=== PATIENT | female | born 1940 | race Caucasian/White ===

== ENCOUNTER → 2017-04-09 | Outpatient (CLI) | payer MEDICARE, OTHER ==
[2017-04-09 16:21] LABS: Urine Bilirubin Negative (Negative); Urine Blood Negative /uL (Negative); Urine Color Yellow (Yellow); Urine Glucose Normal (Normal); Urine Ketone Negative (Negative); Urine Nitrite Negative (Negative); Urine Urobilinogen Normal (Negative)
== END | disposition home or self-care (01) ==
LOC: LAB 11:25
PROVIDERS: ATTEND Internal Medicine Cardiovascular Disease
DX: N39.0 Urinary tract infection, site not specified (principal)
CPT/HCPCS: 81003; 87086

== ENCOUNTER → 2017-04-19 | Outpatient (CLI) | payer MEDICARE, OTHER ==
[2017-04-20 12:30] LABS: Urine Bilirubin Negative (Negative); Urine Blood Negative /uL (Negative); Urine Color Yellow (Yellow); Urine Glucose Normal (Normal); Urine Ketone Negative (Negative); Urine Nitrite Negative (Negative); Urine Urobilinogen Normal (Negative)
== END | disposition home or self-care (01) ==
LOC: LAB 11:23
PROVIDERS: ATTEND Internal Medicine Cardiovascular Disease
DX: N39.0 Urinary tract infection, site not specified (principal)
CPT/HCPCS: 81003; 87086

== ENCOUNTER → 2017-09-05 | Outpatient (CLI) | payer MEDICARE, OTHER | END | disposition home or self-care (01) | LOC: Rad HDHVI 08:57 | PROVIDERS: ATTEND Internal Medicine Cardiovascular Disease | DX: I08.0 Rheumatic disorders of both mitral and aortic valves (principal) | CPT/HCPCS: 93306; 93880 ==

== ENCOUNTER → 2017-09-07 | Outpatient (CLI) | payer MEDICARE, OTHER ==
[~2017-09-07] VITALS: Ht 152.4 cm; Wt 41.7 kg
[2017-09-07 12:18] LABS: Urine Blood Negative /uL (Negative); Urine Specific Gravity 1.022 (1.001-1.035)
[2017-09-07 12:23] LABS: Basophils # (auto) 0.1 uL; Eosinophils # (auto) 0.2 uL; Lymphocytes # (auto) 1.1 uL; Mean Corpuscular Hgb Conc. 33.1 g/dL (32.0-36.0); Monocytes # (auto) 0.7 uL; Neutrophils # (auto) 3.7 uL; Red Blood Cells 3.22 10^6/uL (4.0-5.20); Red Cell Distribution Width 13.2 % (11.8-14.3)
[2017-09-07 12:26] LABS: Basophils % (auto) 1.8 % (0.0-2.0); Hematocrit 33.9 % (36.0-46.0); Hemoglobin 11.2 g/dL (12.2-16.2); Lymphocytes % (auto) 18.3 % (10.0-50.0); Mean Corpuscular Hemoglobin 34.9 pg (28.0-32.0); Mean Corpuscular Volume 105.3 fL (80.0-100.0); Monocytes % (auto) 12.9 % (0.0-12.0); Nucleated Red Blood Cells % 0.2 %; Platelet Count (auto) 326 10^3/uL (140-450); White Blood Cell 5.8 10^3/uL (4.4-10.8)
[2017-09-07 12:42] LABS: Free T4 (Free Thyroxine) 0.86 ng/dL (0.89-1.76)
[2017-09-07 12:48] LABS: Albumin 3.4 g/dL (3.4-5.0); BUN/Creatinine Ratio 28.3; Bilirubin, Total 0.4 mg/dL (0.2-1.0); Calcium 8.9 mg/dL (8.5-10.1); Potassium 4.7 mmol/L (3.5-5.1); Total Protein 7.8 g/dL (6.4-8.2)
== END | disposition home or self-care (01) ==
LOC: Rad HDHVI 09:22
PROVIDERS: ATTEND Internal Medicine Cardiovascular Disease
DX: I10 Essential (primary) hypertension (principal); E78.00 Pure hypercholesterolemia, unspecified; D64.9 Anemia, unspecified; E03.9 Hypothyroidism, unspecified; E11.9 Type 2 diabetes mellitus without complications; E55.9 Vitamin D deficiency, unspecified; N39.0 Urinary tract infection, site not specified; D51.9 Vitamin B12 deficiency anemia, unspecified
CPT/HCPCS: 36415; 78452; 80053; 80061; 81003; 82306; 82607; 83036; 84439; 84443; 85025; 93017; 96374; A9500

== ENCOUNTER → 2017-09-12 | Outpatient (CLI) | payer MEDICARE, OTHER ==
[2017-09-12 16:06] LABS: Urine Blood Negative /uL (Negative); Urine Specific Gravity 1.021 (1.001-1.035)
== END | disposition home or self-care (01) ==
LOC: LAB 12:29
PROVIDERS: ATTEND Internal Medicine Cardiovascular Disease
DX: N39.0 Urinary tract infection, site not specified (principal)
CPT/HCPCS: 81003; 87086

== ENCOUNTER → 2017-10-01 | Outpatient (CLI) | payer MEDICARE, OTHER ==
[2017-10-01 17:06] LABS: Urine Blood Negative /uL (Negative); Urine Specific Gravity 1.018 (1.001-1.035)
== END | disposition home or self-care (01) ==
LOC: LAB 14:39
PROVIDERS: ATTEND Internal Medicine Cardiovascular Disease
DX: N39.0 Urinary tract infection, site not specified (principal)
CPT/HCPCS: 81003; 87086

== ENCOUNTER → 2018-08-28 | Outpatient (CLI) | payer MEDICARE, OTHER ==
[2018-08-28 16:16] LABS: Urine Blood Negative /uL (Negative); Urine Specific Gravity 1.016 (1.001-1.035)
[2018-08-28 16:25] LABS: Albumin 3.6 g/dL (3.4-5.0); Calcium 9.1 mg/dL (8.5-10.1); Potassium 4.7 mmol/L (3.5-5.1)
[2018-08-28 16:33] LABS: Bilirubin, Direct 0.1 mg/dL (0-0.2); Bilirubin, Total 0.4 mg/dL (0.2-1.0); Total Protein 8.5 g/dL (6.4-8.2)
[2018-08-28 16:35] LABS: Basophils # (auto) 0.1 uL; Eosinophils # (auto) 0.1 uL; Monocytes # (auto) 0.7 uL; Neutrophils # (auto) 3.6 uL
[2018-08-28 16:37] LABS: Basophils % (auto) 1.9 % (0.0-2.0); Eosinophils % (auto) 1.8 % (0.0-7.0); Hematocrit 38.9 % (36.0-46.0); Hemoglobin 12.9 g/dL (12.2-16.2); Lymphocytes # (auto) 1.2 uL; Lymphocytes % (auto) 20.8 % (10.0-50.0); Mean Corpuscular Hemoglobin 34.8 pg (28.0-32.0); Mean Corpuscular Hgb Conc. 33.1 g/dL (32.0-36.0); Mean Corpuscular Volume 105.2 fL (80.0-100.0); Monocytes % (auto) 11.7 % (0.0-12.0); Neutrophils % (auto) 63.8 % (37.0-80.0); Nucleated Red Blood Cells % 0.1 %; Platelet Count (auto) 365 10^3/uL (140-450); Red Cell Distribution Width 13.2 % (11.8-14.3); White Blood Cell 5.7 10^3/uL (4.4-10.8)
== END | disposition home or self-care (01) ==
LOC: LAB 11:39
PROVIDERS: ATTEND Internal Medicine Cardiovascular Disease
DX: N39.0 Urinary tract infection, site not specified (principal); K74.1 Hepatic sclerosis; E03.9 Hypothyroidism, unspecified; E55.9 Vitamin D deficiency, unspecified; E11.9 Type 2 diabetes mellitus without complications
CPT/HCPCS: 36415; 80048; 80061; 80076; 81003; 82306; 83036; 84443; 85025; 87086

== ENCOUNTER → 2018-11-06 | Outpatient (CLI) | payer MEDICARE, OTHER | END | disposition home or self-care (01) | LOC: Rad HDHVI 12:12 | PROVIDERS: ATTEND Internal Medicine Cardiovascular Disease | DX: M47.816 Spondylosis without myelopathy or radiculopathy, lumbar region (principal); M48.061 Spinal stenosis, lumbar region without neurogenic claudication | CPT/HCPCS: 72131 ==

== ENCOUNTER → 2018-12-02 | Outpatient (CLI) | payer MEDICARE, BC ==
[~2018-12-02] MED LIST: ALPR0.25 PO; AZIL40TA2 PO; EST0625T PO; GABA300C10 PO; HYDR-531 PO; TRAM50TA2 PO; [UNRECOGNIZED DRUG - CODE] TOP
[2018-12-02 08:15] VITALS: BP 131/60
[2018-12-02 08:40] VITALS: BP 142/73
--- NOTE | 2018-12-02 08:40 | NUR ---
PRE-OP FOR RIGHT LEG DIRECTOR OF INFORMATICS FOR 12/05/18 FOR PAD. Pre-Op Discharge Summary: See e-MAR for any medications given for this visit. Pre-op orders received and carried out per MD of EKG, LABS and chest xrays. Patient given a copy of EKG with instructions to go to [facility] out patient for further follow up care.
[2018-12-02 12:32] LABS: Potassium 4.8 mmol/L (3.5-5.1)
[2018-12-02 12:33] LABS: INR 0.9 (0.9-1.15); Partial Thromboplastin Time 26.8 sec (23.78-33.04); Prothrombin Time 9.7 sec (9.27-12.13)
[2018-12-02 12:38] LABS: Basophils # (auto) 0.1 uL; Eosinophils # (auto) 0.1 uL; Hematocrit 39.3 % (36.0-46.0); Lymphocytes # (auto) 1.3 uL; Neutrophils # (auto) 3.6 uL; Neutrophils % (auto) 61.5 % (37.0-80.0); Nucleated Red Blood Cells % 0.3 %; Red Blood Cells 3.78 10^6/uL (4.0-5.20)
[2018-12-02 12:39] LABS: Basophils % (auto) 1.4 % (0.0-2.0); Hemoglobin 13.2 g/dL (12.2-16.2); Mean Corpuscular Hemoglobin 34.8 pg (28.0-32.0); Mean Corpuscular Hgb Conc. 33.5 g/dL (32.0-36.0); Mean Corpuscular Volume 103.9 fL (80.0-100.0); Monocytes # (auto) 0.7 uL; Monocytes % (auto) 12.1 % (0.0-12.0); Platelet Count (auto) 377 10^3/uL (140-450); Red Cell Distribution Width 13.4 % (11.8-14.3); White Blood Cell 5.9 10^3/uL (4.4-10.8)
[2018-12-02 13:11] LABS: BUN/Creatinine Ratio 34.2; Calcium 9.3 mg/dL (8.5-10.1)
== END | disposition home or self-care (01) ==
LOC: Rad HDHVI 08:01
PROVIDERS: ATTEND Internal Medicine Cardiovascular Disease
DX: Z01.812 Encounter for preprocedural laboratory examination (principal); D64.9 Anemia, unspecified; R79.1 Abnormal coagulation profile; I10 Essential (primary) hypertension; M85.88 Other specified disorders of bone density and structure, other site; I70.0 Atherosclerosis of aorta
CPT/HCPCS: 36415; 71046; 80048; 85025; 85610; 85730; 93005; G0463

== ENCOUNTER 2018-12-05 08:58 | Inpatient (IN) | payer BC, MEDICARE ==
[~2018-12-05] VITALS: Ht 152.4 cm; Wt 45.0 kg
[2018-12-05] VITALS (26 sets, daily range): BP systolic 81–115; BP diastolic 35–70
[2018-12-05] MEDS ORDERED: ANGIOMAX 250 MG VIAL IV ONE (12:05)
[2018-12-05] MEDS ORDERED: fentaNYL CITRATE 100 MCG/2 ML VL ONE (12:05)
[2018-12-05] MEDS ORDERED: MIDAZOLAM HCL 1MG/1ML-2 ML VIAL ONE (12:06)
[2018-12-05] MEDS ORDERED: SODIUM CHL 0.9% 50 ML ONE (12:06)
[2018-12-05] MEDS ORDERED: IODIXANOL 320MG/ML 100ML BTL IV ONE (12:08)
[2018-12-05] MEDS ORDERED: LIDOCAINE 2%HCL (LOCAL ANESTH.) INJ 20ML MDV ONE (12:08)
[2018-12-05] MEDS ORDERED: VERAPAMIL 2.5MG/ML INJ 2ML VIAL IV ONE (12:35)
[2018-12-05] MEDS ORDERED: NITROGLYCERIN 5MG/ML 10ML VIAL IV ONE (12:42)
[2018-12-05] MEDS ORDERED: HYDROmorphone HCL 2 MG/ML VL ONE (12:56)
[2018-12-05] MEDS ORDERED: diphenhdrAMINE HCL 50 MG/1 ML VL ONE (13:01)
[2018-12-05] MEDS ORDERED: CLOPIDOGREL 300 MG TAB ONE (13:09)
[2018-12-05] MEDS ORDERED: ASPirin 325 MG TAB ONE (13:09)
[2018-12-05] MEDS ORDERED: MORPHINE SULF INJ 2 MG/ML SYRINGE 1ML IV PRN (13:15)
[2018-12-05] MEDS ORDERED: ACETAMINOPHEN 500 MG TAB PO PRN (13:15)
[2018-12-05] MEDS ORDERED: NITROGLYCERIN 0.4 MG SL TAB SL PRN (13:15)
[2018-12-05] MEDS ORDERED: ALPRAZolam 0.25 MG TAB PO PRN (13:30)
[2018-12-05] MEDS: HYDROcodone-ACET 10/325MG TAB PO PRN ×3 (15:06→22:13)
[2018-12-05] MEDS ORDERED: DOPamine 1600MCG/ML D5W 250 ML IV ONE (15:53)
[2018-12-05] MEDS: DOPamine 1600MCG/ML D5W 250 ML IV SCH (16:01)
[2018-12-05 17:24] LABS: Basophils # (auto) 0.1 uL; Hemoglobin 8.7 g/dL (12.2-16.2); Mean Corpuscular Hemoglobin 34.6 pg (28.0-32.0); Monocytes # (auto) 0.8 uL; Platelet Count (auto) 268 10^3/uL (140-450)
[2018-12-05 17:25] LABS: Basophils % (auto) 1.1 % (0.0-2.0); Eosinophils # (auto) 0.1 uL; Eosinophils % (auto) 1.9 % (0.0-7.0); Hematocrit 26.6 % (36.0-46.0); Lymphocytes # (auto) 0.7 uL; Lymphocytes % (auto) 9.2 % (10.0-50.0); Mean Corpuscular Hgb Conc. 32.8 g/dL (32.0-36.0); Mean Corpuscular Volume 105.3 fL (80.0-100.0); Monocytes % (auto) 9.7 % (0.0-12.0); Neutrophils # (auto) 6.2 uL; Neutrophils % (auto) 78.1 % (37.0-80.0); Red Blood Cells 2.53 10^6/uL (4.0-5.20); Red Cell Distribution Width 13.8 % (11.8-14.3); White Blood Cell 7.9 10^3/uL (4.4-10.8)
[2018-12-05] MEDS: ONDANSETRON HCL 4 MG/2 ML VIAL IV PRN ×2 (17:31→22:12)
--- NOTE | 2018-12-05 18:50 | NUR ---
REPORT Received report from Lashawn MORSE, awaiting for patient to arrive to room 103.
--- NOTE | 2018-12-05 19:00 | NUR ---
admit to ICU pt S/P laborer [employer] Report received from dee carrillo. ZENY HURST brought to bed 103 following bilateral lower extremity angiography, on liquor commissioner and portable oxygen. Patient transfered to ICU bed, connected to ICU monitoring and oxygen.left angio Site assessed for any bleeding, redness or swelling. positive Pedal pulses via doppler on affected leg assessed for positive tissue perfusion. Patient instructed on need to notify staff immediately if any pain, burning or wetness to site, and any lower back pain. All questions and concerns addressed, patient verbalized understanding of all education and instruction. See notes for any further. pt on dopamine drip
--- NOTE | 2018-12-05 19:00 | NUR ---
RECEIVED PATIENT Received patient into room 103, connected patient to bedside monitor, difficulty getting EKG leads to read, O2 sats not reading patient stating " she is cold" and last temperature taking by computer lab assistant nurses was 96.5. MRSA swab sent to laboratory.
--- NOTE | 2018-12-05 19:15 | NUR ---
REPORT Report given to oncoming MINI Santos.
--- NOTE | 2018-12-05 19:30 | NUR ---
UNABLE TO GET PULSE -OX TO READ DESPITE MULTIPLE LOCATIONS AND CHANGING CABLE
--- NOTE | 2018-12-05 21:10 | NUR ---
prbc hung educated on s/s of transfusion reaction. pt lethargic at this time unable to verbalize understanding. will stay at bedside for first 15minutes to monitor for s/s of transfusion reaction.
--- NOTE | 2018-12-05 21:27 | NUR ---
transfusion no s/s of transfusion reaction within the first 15minutes. will continue to monitor.
--- NOTE | 2018-12-05 21:45 | NUR ---
VOID X1 VIA BEDPAN - SARAH URINE
[2018-12-05] MEDS ORDERED: GABAPENTIN 300 MG CAP PO SCH (22:00)
[2018-12-05] MEDS: traMADol HCL 50 MG TAB PO SCH (22:00)
--- NOTE | 2018-12-05 22:14 | NUR ---
ultram held pt requested norco for pain instead of ultram.
--- NOTE | 2018-12-05 23:38 | NUR ---
PAGED DR. MENDOZA - PATIENT STATES SHE TAKES 600 MG OF GABAPENTIN AT NIGHT, BUT ONLY 300 MG WAS ORDERED. PATIENT RELAYS THAT PAIN IS TOLERABLE AT THIS TIME, BUT IF IT WORSENS, SHE STATES THE ONLY THING THAT MAKES IT FEEL BETTER IS STANDING UP
[2018-12-06] VITALS (76 sets, daily range): BP systolic 81–136; BP diastolic 32–113
--- NOTE | 2018-12-06 | NUR ---
STILL UNABLE TO GET PULSE OX TO READ
--- NOTE | 2018-12-06 00:15 | NUR ---
transfusion complete pt tolerated well. no s/s of transfusion reaction.
[2018-12-06] MEDS: traMADol HCL 50 MG TAB PO SCH ×2 (00:42→21:02)
--- NOTE | 2018-12-06 00:44 | NUR ---
REPORTED THAT SHE FELT LIKE SOMEONE WAS GRABBING HER INSIDES, JET SKI MECHANIC UNABLE TO DETECT ANY CHANGES IN ABDOMEN. REMAINS ON DOPAMINE GTT. Addendum: 12/06/18 at 0045 by Danielle Caro RN RN TRAMADOL GIVEN
--- NOTE | 2018-12-06 01:31 | NUR ---
DR. MENDOZA AWARE OF PATIENT'S REQUEST FOR 600 MG NEURONTIN IN THE EVENING, BUT ORDER FOR [address] MENDOZA, OK TO CHANGE ORDERS. ORDERS READBACK AND VERIFIED
--- NOTE | 2018-12-06 03:12 | NUR ---
VOID X1 VIA BED VILLA
--- NOTE | 2018-12-06 03:18 | NUR ---
LEFT GROIN ANGIO SITE CHECK: DRESSING CDI. NO HEMATOMA, ECCHYMOSIS, OR ACTIVE BLEEDING. PATIENT RATES ABDOMINAL PAIN "TOLERABLE." PATIENT ASKING ABOUT WHAT TIME DR. MENDOZA WILL ROUND
[2018-12-06] MEDS ORDERED: ASPI-231 PO (03:25)
--- NOTE | 2018-12-06 05:00 | NUR ---
VOID VIA BED VILLA X1
[2018-12-06] MEDS: HYDROcodone-ACET 10/325MG TAB PO PRN ×4 (05:24→19:28)
--- NOTE | 2018-12-06 06:06 | NUR ---
FAMILY UPDATED: AFTER PASSWORD VERIFIED, UPDATED ON PATIENT'S STATUS
--- NOTE | 2018-12-06 06:46 | NUR ---
FAMILY AT BEDSIDE
--- NOTE | 2018-12-06 06:46 | NUR ---
INQUIRED WITH LAB ABOUT LAB AM LAB DRAW: PER LAB, WILL SEND SENIOR ACCOUNT CLERK
--- NOTE | 2018-12-06 07:11 | NUR ---
CLOSING NOTE GAVE REPORT TO DEA MORSE
--- NOTE | 2018-12-06 07:12 | NUR ---
SHIFT OPENING NOTE PATIENT AOX4, MOVING ALL EXTREMITIES, LEFT GROIN SITE NO HEMATOMA OR BLEEDING NOTED, PEDAL PULSES WITH DOPPLER BILATERALLY, 2LNC LUNGS CLEAR THROUGHOUT, ABDOMEN SOFT AND NONTENDER, PER PATIENT SHE IS PASSING GAS AT THIS TIME. ALL QUESTIONS AND CONCERNS ADDRESSED AT THIS TIME WITH PLAN OF CARE DISCUSSED IN DETAIL
[2018-12-06 07:29] LABS: Basophils # (auto) 0 uL; Eosinophils # (auto) 0 uL; Eosinophils % (auto) 0.2 % (0.0-7.0); Lymphocytes # (auto) 0.8 uL
[2018-12-06 07:30] LABS: Basophils % (auto) 0.5 % (0.0-2.0); Hematocrit 24.8 % (36.0-46.0); Hemoglobin 8.5 g/dL (12.2-16.2); Lymphocytes % (auto) 8.8 % (10.0-50.0); Mean Corpuscular Hemoglobin 33.1 pg (28.0-32.0); Mean Corpuscular Hgb Conc. 34.2 g/dL (32.0-36.0); Mean Corpuscular Volume 96.6 fL (80.0-100.0); Monocytes % (auto) 10.9 % (0.0-12.0); Neutrophils # (auto) 7.1 uL; Neutrophils % (auto) 79.6 % (37.0-80.0); Platelet Count (auto) 221 10^3/uL (140-450); Red Blood Cells 2.57 10^6/uL (4.0-5.20); Red Cell Distribution Width 18.7 % (11.8-14.3); White Blood Cell 8.9 10^3/uL (4.4-10.8)
[2018-12-06 07:38] LABS: Calcium 7.1 mg/dL (8.5-10.1); Potassium 4.3 mmol/L (3.5-5.1)
[2018-12-06 07:41] LABS: BUN/Creatinine Ratio 34.1
[2018-12-06] MEDS: ASPirin 81 mg TAB PO SCH (09:54)
[2018-12-06] MEDS: GABAPENTIN 300 MG CAP PO SCH (09:56)
[2018-12-06] MEDS: CLOPIDOGREL BISULFATE 75 MG TAB PO SCH (09:57)
--- NOTE | 2018-12-06 09:59 | NUR ---
FAMILY DAUGHTER AT BEDSIDE. UPDATED ON PATIENT STATUS. ALL QUESTIONS AND CONCERNS ADDRESSED AT THIS TIME
[2018-12-06] MEDS ORDERED: GABAPENTIN 300 MG CAP PO SCH ×2 (10:00→22:00)
--- NOTE | 2018-12-06 10:04 | NUR ---
DR. MENDOZA AT BESIDE
--- NOTE | 2018-12-06 11:15 | NUR ---
1 unit prbc started
--- NOTE | 2018-12-06 13:45 | NUR ---
BLOOD TRANFUSION COMPLETE NO REACTION NOTED
--- NOTE | 2018-12-06 14:11 | NUR ---
PATIENT OUT OF BED TO CHAIR WITH MINIMAL ASSIST
--- NOTE | 2018-12-06 14:21 | NUR ---
COMPLETE LINEN CHANGE PERFORMED AT THIS TIME
[2018-12-06] MEDS: DOPamine 1600MCG/ML D5W 250 ML IV SCH (16:00)
--- NOTE | 2018-12-06 16:10 | NUR ---
PATIENT BACK TO BED FALL PRECAUTIONS IN PLACE, STANDBY ASSIST
--- NOTE | 2018-12-06 19:10 | NUR ---
REPORT GIVEN TO JUSTIN MORSE TO ASSUME CARE
--- NOTE | 2018-12-06 19:14 | NUR ---
REPORT RECEIVED FROM MINI MALIN
--- NOTE | 2018-12-06 19:25 | NUR ---
OPENING NOTE: A&OX4. PLEASANT AND COOPERATIVE. NSR, HR 70s. SBP 100s. LS CTA, EVEN AND UNLABORED BREATHING. SpO2 >95% ON RA. ABD TENDER. UNABLE TO PALPATE HEMATOMA IN LEFT INGUINAL REGION. REPORTS POOR APPETITE, DENIES NAUSEA. REPORT LACK OF OUTPUT FROM COLOSTOMY. COLOSTOMY STOMA PINK, AND APPLIANCE INTACT. SMALL AMOUNT OF BROWN PASTY STOOL NOTED. VOIDING VIA BEDSIDE COMMODE, URINE YELLOW AND CLEAR WITH MILD ODOR. LEFT GROIN ANGIO SITE WITH ORIGINAL DRESSING INTACT, NO ECCHYMOSIS, HEMATOMA, OR ACTIVE BLEEDING NOTED. + PEDAL PULSE VIA DOPPLER, +CMS. NOTED WITH VARICOSE VEINS TO POSTERIOR RIGHT THIGH. SCATTERED BRUISING TO BUE. SKIN OTHERWISE INTACT. RIGHT AC 20 G PIV, PATENT WITH BLOOD RETURN, CDI. 22 G TO LEFT FOREARM, PATENT WITH BLOOD RETURN AND CDI. REPORTS 8/10 ACHING LOWER LEFT ABDOMINAL PAIN. DENIES CHEST PAIN, SOB, HEADACHE, DIZZINESS, N/V, AND NUMBNESS AND TINGLING. REINFORCED POC. MAINTAINED PATIENT SAFETY: BED LOCKED AND IN THE LOWEST POSITION, BED ALARM ON. FREQUENT VISUAL CHECKS. ENCOURAGED PATIENT TO VERBALIZE NEEDS. PATIENT VERBALIZED UNDERSTANDING. WILL CONT CARE
--- NOTE | 2018-12-06 19:44 | NUR ---
SCHEDULED MEDS GIVEN EARLY PER PATIENT REQUEST, THIS IS THE SCHEDULE OF HOW SHE TAKES THEM AT HOME
--- NOTE | 2018-12-06 20:00 | NUR ---
PATIENT INDEPENDENTLY REPOSITIONS: EDUCATED ON IMPORTANCE OF REPOSITIONING AND SHIFTING WEIGHT IN BED TO PREVENT SKIN BREAKDOWN. PATIENT VERBALIZED UNDERSTANDING. WILL CONT CARE.
--- NOTE | 2018-12-06 20:45 | NUR ---
AMBULATED FOUR LAPS AROUND THE UNIT WITH ASSISTANCE OF FWW WITH NO COMPLICATIONS
--- NOTE | 2018-12-06 20:45 | NUR ---
COLOSTOMY APPLIANCE CHANGED: SMALL AMOUNT OF PASTY STOOL. PATIENT REPORTS TENDERNESS TO STOMA. STOMA PER PATIENT IS "POOFY AND ANGRY" BUT PINK. CLEANSED AREA WITH SOAP AND WATER. APPLIED NEW APPLIANCE.
--- NOTE | 2018-12-06 21:04 | NUR ---
SCHEDULED MEDS GIVEN EARLY PER PATIENT'S REQUEST
[2018-12-06] MEDS ORDERED: POLYETHYLENE GLYCOL 17 GM PWDR PO SCH (22:00)
--- NOTE | 2018-12-06 22:07 | NUR ---
ROUNDED: SLEEPING. EVEN AND UNLABORED BREATHING. NO PAIN BEHAVIORS IDENTIFIED. WILL CONT CARE
[2018-12-06] MEDS ORDERED: POLY33504 PO (22:17)
--- NOTE | 2018-12-06 23:00 | NUR ---
ROUNDED: SLEEPING. EVEN AND UNLABORED BREATHING. NO PAIN BEHAVIORS IDENTIFIED. WILL CONT CARE
[2018-12-07] VITALS (14 sets, daily range): BP systolic 93–116; BP diastolic 38–62
--- NOTE | 2018-12-07 | NUR ---
PATIENT INDEPENDENTLY REPOSITIONING: SHIFTS HER WEIGHT WHILE SLEEPING. WILL CONTINUE EDUCATION AND CARE.
--- NOTE | 2018-12-07 00:19 | NUR ---
DEFERRED TEMPERATURE ASSESSMENT AT THIS TIME - PATIENT ASLEEP
--- NOTE | 2018-12-07 00:20 | NUR ---
ROUNDED: ASLEEP, EVEN AND UNLABORED BREATHING. NO PAIN BEHAVIORS. VSS. WILL CONT CARE
--- NOTE | 2018-12-07 00:57 | NUR ---
ROUNDED: SLEEPING, EVEN AND UNLABORED BREATHING. VSS. WILL CONT CARE
--- NOTE | 2018-12-07 02:15 | NUR ---
UP TO BEDSIDE COMMODE WITH STAND BY ASSIST
--- NOTE | 2018-12-07 03:23 | NUR ---
ROUNDED: SLEEPING. EVEN AND UNLABORED BREATHING. NO PAIN BEHAVIORS IDENTIFIED. WILL CONT CARE
[2018-12-07] MEDS: HYDROcodone-ACET 10/325MG TAB PO PRN ×2 (04:11→09:48)
--- NOTE | 2018-12-07 04:12 | NUR ---
FAMILY UPDATED: AFTER PASSWORD VERIFIED. UPDATED ON PATIENT'S STATUS. ANSWERED ALL QUESTIONS ABLE.
[2018-12-07 04:19] LABS: Basophils # (auto) 0.1 uL; Eosinophils # (auto) 0.2 uL; Eosinophils % (auto) 2.5 % (0.0-7.0); Hematocrit 27.4 % (36.0-46.0); Hemoglobin 9.5 g/dL (12.2-16.2); Lymphocytes % (auto) 15.5 % (10.0-50.0); Mean Corpuscular Hemoglobin 32.5 pg (28.0-32.0); Mean Corpuscular Hgb Conc. 34.8 g/dL (32.0-36.0); Mean Corpuscular Volume 93.5 fL (80.0-100.0); Monocytes # (auto) 0.8 uL; Monocytes % (auto) 12.4 % (0.0-12.0); Neutrophils # (auto) 4.4 uL; Neutrophils % (auto) 68.6 % (37.0-80.0); Platelet Count (auto) 187 10^3/uL (140-450); Red Blood Cells 2.94 10^6/uL (4.0-5.20); Red Cell Distribution Width 19.5 % (11.8-14.3); White Blood Cell 6.4 10^3/uL (4.4-10.8)
[2018-12-07 04:27] LABS: BUN/Creatinine Ratio 27.9; Calcium 7.4 mg/dL (8.5-10.1); Potassium 3.9 mmol/L (3.5-5.1)
--- NOTE | 2018-12-07 05:13 | NUR ---
ROUNDED: AWAKE AND WATCHING TV. NO NEEDS AT THIS TIME. VSS. WILL CONT CARE
--- NOTE | 2018-12-07 06:35 | NUR ---
PIV TO LEFT FOREARM ACCIDENTLY DISLODGED BY PATIENT WHEN TRANSFERRING FROM BED TO BEDSIDE COMMODE- REMOVED PIV, PRESSURE HELD UNTIL BLEEDING STOPPED. APPLIED GAUZE, SECURED BY TEGADERM
--- NOTE | 2018-12-07 07:00 | NUR ---
REPORT AND CARE ENDORSED TO MINI MALIN
--- NOTE | 2018-12-07 07:11 | NUR ---
SHIFT OPENING NOTE PATIENT AOX4, MOVING ALL EXTREMITIES, REPORTS NO PAIN OR DISCOMFORT AT THIS TIME. LUNGS CLEAR THROUGHOUT ON ROOM AIR, O2 SATURATION 98%, ABDOMEN SOFT AND NONTENDER, LEFT GROIN SITE BENIGN. PALPABLE PULSES TO LOWER EXTREMITIES. PLAN OF CARE DISCUSSED WITH PATIENT IN DETAIL.
--- NOTE | 2018-12-07 09:22 | NUR ---
FAMILY DAUGHTERS AT BEDSIDE. UPDATED ON PATIENT STATUS. QUESTIONS ADDRESSED AT THIS TIME
[2018-12-07] MEDS: GABAPENTIN 300 MG CAP PO SCH (09:44)
[2018-12-07] MEDS: ASPirin 81 mg TAB PO SCH (09:45)
[2018-12-07] MEDS: CLOPIDOGREL BISULFATE 75 MG TAB PO SCH (09:45)
--- NOTE | 2018-12-07 09:58 | NUR ---
AMBULATION PATIENT AMBULATED SIX TIMES AROUND NURSING STATION WITH STEADY GAIT
[2018-12-07] MEDS: traMADol HCL 50 MG TAB PO SCH (10:00)
--- NOTE | 2018-12-07 10:07 | NUR ---
PLAVIX PRESCRIPTION CALLED INTO [facility] [id number] [address], [place] [address]
--- NOTE | 2018-12-07 10:23 | NUR ---
[facility]SA SCREEN SENT VIA [employer]
[2018-12-07] MEDS ORDERED: MAGNESIUM CITRATE SOLUTION 300 ML BTL PO ONE (10:45)
--- NOTE | 2018-12-07 13:05 | NUR ---
BM PATIENT HAD LARGE LIQUID BM. PATIENT REPORTS RELIEF FROM DISCOMFORT. COLOSTOMY BAG CHANGED AT THIS TIME
--- NOTE | 2018-12-07 13:56 | NUR ---
DISCHARGE PATIENT DISCHARGED AFTER LENGTHY DISCHARGE INFORMATION FROM RN. ALL QUESTIONS AND CONCERNS ADDRESSED AT THIS TIME. PATIENT REPORTS HER PRIMARY CARE PROVIDER IS DR. MENDOZA AND THAT SHE WILL MAKE A FOLLOW UP APPOINTMENT ON SUNDAY FOR A FOLLOW UP. PATIENT DISCHARGED WITH ALL PATIENT BELONGINGS AND NO MEDICATIONS NOTED IN PHARMACY.
--- NOTE | 2018-12-07 13:56 | NUR ---
IV removal IV DC'd with clean sterile technique, catheter fully intact. Pressure dressing applied to site. Patient tolerated well.
[2018-12-08] MEDS ORDERED: ALBUMIN 25% 50 ML IV ONE (00:01)
== END 2018-12-07 13:58 | disposition home or self-care (01) | DRG 271 ==
LOC: CATH 08:58 → ICU WEST 19:05
PROVIDERS: ADMIT Internal Medicine Cardiovascular Disease; ATTEND Internal Medicine Cardiovascular Disease
PROC: 047M3Z1 Dilation of Right Popliteal Artery using Drug-Coated Balloon, Percutaneous Approach (ICD-10-PCS; principal; 2018-12-05)
PROC: 04CM3ZZ Extirpation of Matter from Right Popliteal Artery, Percutaneous Approach (ICD-10-PCS; 2018-12-05)
PROC: 047R3Z1 Dilation of Right Posterior Tibial Artery using Drug-Coated Balloon, Percutaneous Approach (ICD-10-PCS; 2018-12-05)
PROC: 04CR3ZZ Extirpation of Matter from Right Posterior Tibial Artery, Percutaneous Approach (ICD-10-PCS; 2018-12-05)
PROC: 30233N1 Transfusion of Nonautologous Red Blood Cells into Peripheral Vein, Percutaneous Approach (ICD-10-PCS; 2018-12-05)
PROC: B41G1ZZ Fluoroscopy of Left Lower Extremity Arteries using Low Osmolar Contrast (ICD-10-PCS; 2018-12-05)
PROC: B41F1ZZ Fluoroscopy of Right Lower Extremity Arteries using Low Osmolar Contrast (ICD-10-PCS; 2018-12-05)
DX: I73.9 Peripheral vascular disease, unspecified (principal); E46 Unspecified protein-calorie malnutrition; Z68.1 Body mass index [BMI] 19.9 or less, adult; I70.92 Chronic total occlusion of artery of the extremities; D64.9 Anemia, unspecified; G62.9 Polyneuropathy, unspecified; I25.10 Atherosclerotic heart disease of native coronary artery without angina pectoris; J44.9 Chronic obstructive pulmonary disease, unspecified; L98.9 Disorder of the skin and subcutaneous tissue, unspecified; I77.1 Stricture of artery; M19.90 Unspecified osteoarthritis, unspecified site; X58.XXXA Exposure to other specified factors, initial encounter; I95.9 Hypotension, unspecified; S30.1XXA Contusion of abdominal wall, initial encounter; Z85.038 Personal history of other malignant neoplasm of large intestine; Z93.3 Colostomy status; Y92.89 Other specified places as the place of occurrence of the external cause; Y93.89 Activity, other specified; Y99.8 Other external cause status; Z82.49 Family history of ischemic heart disease and other diseases of the circulatory system
CPT/HCPCS: 36415; 37225; 37229; 75716; 80048; 85025; 86850; 86900; 86901; 86920; 87081; 93926; A6257; G0378; J2250; J2405; J3490; Q9967

== ENCOUNTER → 2018-12-30 | Outpatient (CLI) | payer MEDICARE ==
[~2018-12-30] MED LIST changes: +ASPI-231 PO; +CLOP75TA28 PO; +POLY33504 PO
[2018-12-30 12:52] LABS: Basophils # (auto) 0.1 uL; Neutrophils # (auto) 4.1 uL; White Blood Cell 5.9 10^3/uL (4.4-10.8)
[2018-12-30 12:59] LABS: Basophils % (auto) 1.5 % (0.0-2.0); Eosinophils # (auto) 0.1 uL; Eosinophils % (auto) 2.6 % (0.0-7.0); Hematocrit 36.6 % (36.0-46.0); Hemoglobin 12.2 g/dL (12.2-16.2); Lymphocytes # (auto) 0.8 uL; Lymphocytes % (auto) 14.3 % (10.0-50.0); Mean Corpuscular Hemoglobin 33.4 pg (28.0-32.0); Mean Corpuscular Hgb Conc. 33.3 g/dL (32.0-36.0); Mean Corpuscular Volume 100.3 fL (80.0-100.0); Monocytes # (auto) 0.7 uL; Monocytes % (auto) 12.5 % (0.0-12.0); Neutrophils % (auto) 69.1 % (37.0-80.0); Platelet Count (auto) 468 10^3/uL (140-450); Red Blood Cells 3.65 10^6/uL (4.0-5.20); Red Cell Distribution Width 16.5 % (11.8-14.3)
[2018-12-30 13:00] LABS: INR 0.9 (0.9-1.15); Partial Thromboplastin Time 31.7 sec (23.78-33.04); Potassium 4.4 mmol/L (3.5-5.1); Prothrombin Time 9.7 sec (9.27-12.13)
[2018-12-30 13:06] LABS: BUN/Creatinine Ratio 26.3; Calcium 9.2 mg/dL (8.5-10.1)
== END | disposition home or self-care (01) ==
LOC: Rad HDHVI 09:49
PROVIDERS: ATTEND Internal Medicine Cardiovascular Disease
DX: Z01.812 Encounter for preprocedural laboratory examination (principal); J44.9 Chronic obstructive pulmonary disease, unspecified; I70.0 Atherosclerosis of aorta; D64.9 Anemia, unspecified; R79.1 Abnormal coagulation profile; I10 Essential (primary) hypertension
CPT/HCPCS: 36415; 71046; 80048; 85025; 85610; 85730

== ENCOUNTER 2019-01-02 06:53 | Inpatient (IN) | payer MEDICARE | END 2019-01-03 12:25 | disposition home or self-care (01) | LOC: CATH 06:53 → TELE-WESTW 11:26 | PROC: 04CN3ZZ Extirpation of Matter from Left Popliteal Artery, Percutaneous Approach (ICD-10-PCS; principal; ~2019-01-02) | PROC: 04CL3ZZ Extirpation of Matter from Left Femoral Artery, Percutaneous Approach (ICD-10-PCS; ~2019-01-02) | PROC: 047L3ZZ Dilation of Left Femoral Artery, Percutaneous Approach (ICD-10-PCS; ~2019-01-02) | PROC: 047N3ZZ Dilation of Left Popliteal Artery, Percutaneous Approach (ICD-10-PCS; ~2019-01-02) | PROC: B41G1ZZ Fluoroscopy of Left Lower Extremity Arteries using Low Osmolar Contrast (ICD-10-PCS; ~2019-01-02) | PROC: B41F1ZZ Fluoroscopy of Right Lower Extremity Arteries using Low Osmolar Contrast (ICD-10-PCS; ~2019-01-02) | DX: I73.9 Peripheral vascular disease, unspecified (principal); Z93.3 Colostomy status; Z85.038 Personal history of other malignant neoplasm of large intestine; M79.7 Fibromyalgia; J44.9 Chronic obstructive pulmonary disease, unspecified; I10 Essential (primary) hypertension; M19.90 Unspecified osteoarthritis, unspecified site ==

== ENCOUNTER → 2019-08-06 | Outpatient (CLI) | payer MEDICARE ==
[~2019-08-06] MED LIST changes: +ACLI1AER2 IN
== END | disposition home or self-care (01) ==
LOC: Rad HDHVI 08:59
PROVIDERS: ATTEND Internal Medicine Cardiovascular Disease
DX: I70.201 Unspecified atherosclerosis of native arteries of extremities, right leg (principal); I70.202 Unspecified atherosclerosis of native arteries of extremities, left leg
CPT/HCPCS: 93925

== ENCOUNTER → 2019-08-12 | Outpatient (CLI) | payer MEDICARE ==
[2019-08-12 09:39] VITALS: BP 167/78
--- NOTE | 2019-08-12 09:39 | NUR ---
Pre-Op Discharge Summary: See e-MAR for any medications given for this visit. Pre-op orders received and carried out per MD of EKG, LABS and chest xrays. Patient given a copy of EKG with instructions to go to [facility] out patient for further follow up care.
[2019-08-12 10:00] VITALS: BP 141/48
[2019-08-12 11:45] LABS: Basophils # (auto) 0.1 uL; Eosinophils # (auto) 0.1 uL; Lymphocytes # (auto) 0.7 uL; Monocytes # (auto) 0.6 uL
[2019-08-12 11:49] LABS: Hematocrit 37.5 % (36.0-46.0); Hemoglobin 12.5 g/dL (12.2-16.2); Mean Corpuscular Hemoglobin 34.2 pg (28.0-32.0); Mean Corpuscular Hgb Conc. 33.3 g/dL (32.0-36.0); Mean Corpuscular Volume 102.9 fL (80.0-100.0); Monocytes % (auto) 12.9 % (0.0-12.0); Neutrophils # (auto) 3.3 uL; Neutrophils % (auto) 68.1 % (37.0-80.0); Nucleated Red Blood Cells % 0.1 %; Platelet Count (auto) 369 10^3/uL (140-450); Red Blood Cells 3.65 10^6/uL (4.0-5.20); Red Cell Distribution Width 13.8 % (11.8-14.3); White Blood Cell 4.9 10^3/uL (4.4-10.8)
[2019-08-12 12:01] LABS: INR 0.99 (0.9-1.15); Partial Thromboplastin Time 29.7 sec (23.64-32.05)
[2019-08-12 12:16] LABS: BUN/Creatinine Ratio 35.4; Potassium 4.9 mmol/L (3.5-5.1)
== END | disposition home or self-care (01) ==
LOC: Rad HDHVI 09:02
PROVIDERS: ATTEND Internal Medicine Cardiovascular Disease
DX: Z01.812 Encounter for preprocedural laboratory examination (principal); M40.204 Unspecified kyphosis, thoracic region; M85.88 Other specified disorders of bone density and structure, other site; J43.9 Emphysema, unspecified
CPT/HCPCS: 36415; 71046; 80048; 85025; 85610; 85730; 93005; G0463

== ENCOUNTER → 2019-09-30 | Outpatient (CLI) | payer MEDICARE, BC ==
[~2019-09-30] MED LIST changes: +FURO20TA3 PO; -POLY33504 PO; +POTA10TA51 PO; -[UNRECOGNIZED DRUG - CODE] TOP
[2019-09-30 09:30] VITALS: BP 140/60
[2019-09-30 09:45] VITALS: BP 152/65
[2019-09-30 11:29] LABS: Basophils # (auto) 0.1 uL; Eosinophils # (auto) 0.2 uL; Lymphocytes # (auto) 1.1 uL; Monocytes # (auto) 0.8 uL
[2019-09-30 11:34] LABS: Basophils % (auto) 1.6 % (0.0-2.0); Eosinophils % (auto) 3.2 % (0.0-7.0); Hematocrit 38.5 % (36.0-46.0); Hemoglobin 12.9 g/dL (12.2-16.2); Lymphocytes % (auto) 18.5 % (10.0-50.0); Mean Corpuscular Hemoglobin 34.3 pg (28.0-32.0); Mean Corpuscular Hgb Conc. 33.5 g/dL (32.0-36.0); Mean Corpuscular Volume 102.5 fL (80.0-100.0); Neutrophils # (auto) 3.7 uL; Neutrophils % (auto) 63.7 % (37.0-80.0); Platelet Count (auto) 341 10^3/uL (140-450); Red Blood Cells 3.75 10^6/uL (4.0-5.20); Red Cell Distribution Width 13.4 % (11.8-14.3); White Blood Cell 5.8 10^3/uL (4.4-10.8)
[2019-09-30 11:46] LABS: INR 0.96 (0.9-1.15); Partial Thromboplastin Time 28.5 sec (23.64-32.05)
[2019-09-30 11:47] LABS: Potassium 4.8 mmol/L (3.5-5.1)
[2019-09-30 11:52] LABS: BUN/Creatinine Ratio 34.6; Calcium 9.4 mg/dL (8.5-10.1)
== END | disposition home or self-care (01) ==
LOC: Rad HDHVI 09:02
PROVIDERS: ATTEND Internal Medicine Cardiovascular Disease
DX: Z01.812 Encounter for preprocedural laboratory examination (principal); J44.9 Chronic obstructive pulmonary disease, unspecified; I73.9 Peripheral vascular disease, unspecified; M79.604 Pain in right leg; R60.0 Localized edema
CPT/HCPCS: 36415; 71046; 80048; 85025; 85610; 85730; 93005; G0463

== ENCOUNTER → 2020-02-13 | Outpatient (CLI) | payer MEDICARE, BC ==
[~2020-02-13] VITALS: Ht 30.5 cm; Wt 0.5 kg
[~2020-02-13] MED LIST changes: -ALPR0.25 PO; +VANCOMYCIN 1GM/250ML 250 ML IV ONE
[2020-02-13 14:26] VITALS: BP 162/64
--- NOTE | 2020-02-13 14:26 | NUR ---
CLINIC PT ARRIVED TO THE [facility] WITH ORDERS FROM MD MENDOZA FOR IV ANTIBIOTICS DUE TO R FOOT WOUND. A/OX4, AMBULATORY. BROUGHT IN BY DAUGHTER. DAUGHTER WILL RETURN IN 1 HR FOR PT.
--- NOTE | 2020-02-13 14:40 | NUR ---
IV insertion IV access obtained, via clean sterile technique by inserting 22 gauge catheter at after 2 attempt(s). IV secured properly. No trauma to site. Patient tolerated procedure well. NOTE 1 UNSUCCESSFUL TRY BY SIMEON MORSE INSERTED BY KIT MORSE
--- NOTE | 2020-02-13 15:54 | NUR ---
IV removal IV DC'd with sterile technique, catheter fully intact. Pressure dressing applied to site. Patient tolerated procedure well. Discharged with aftercare instructions per MD. NOTE: REMOVED BY SIMEON MORSE
[2020-02-13 15:59] VITALS: BP 137/77
--- NOTE | 2020-02-13 15:59 | NUR ---
Discharge Instructions See e-MAR for any mediations given with this visit. Patient education given on disease process. Patient verbalized understanding. Previous labs reviewed. Patient discharged in stable condition with after care instructions and follow up appointment. NOTE SAM GUTIERREZ [id number] BY KIT MORSE
== END | disposition home or self-care (01) ==
LOC: CHF HDHVI 14:30
PROVIDERS: ATTEND Internal Medicine Cardiovascular Disease
DX: S91.301A Unspecified open wound, right foot, initial encounter (principal); I25.10 Atherosclerotic heart disease of native coronary artery without angina pectoris; I73.9 Peripheral vascular disease, unspecified; J44.9 Chronic obstructive pulmonary disease, unspecified; I10 Essential (primary) hypertension; E78.5 Hyperlipidemia, unspecified; M19.90 Unspecified osteoarthritis, unspecified site; G89.4 Chronic pain syndrome; Z87.891 Personal history of nicotine dependence
CPT/HCPCS: 96365; G0463; J3370

== ENCOUNTER 2020-03-21 12:12 | Emergency (ER) | payer MEDICARE, BC ==
[~2020-03-21] VITALS: Ht 152.4 cm; Wt 24.5 kg
[~2020-03-21 12:12] MED LIST changes: -VANCOMYCIN 1GM/250ML 250 ML IV ONE
[2020-03-21 12:53] VITALS: BP 104/62
[2020-03-21 14:22] LABS: INR 1.07 (0.9-1.15); Partial Thromboplastin Time 27.6 sec (23.0-31.2)
== END 2020-03-21 15:26 | disposition home or self-care (01) ==
LOC: ER 12:12
DX: S56.992A Other injury of unspecified muscles, fascia and tendons at forearm level, left arm, initial encounter (principal); W18.39XA Other fall on same level, initial encounter; Y93.89 Activity, other specified; Y92.89 Other specified places as the place of occurrence of the external cause; Y99.8 Other external cause status
CPT/HCPCS: 36415; 73090; 85610; 85730

== ENCOUNTER → 2020-04-20 | Outpatient (CLI) | payer MEDICARE, BC ==
[~2020-04-20] MED LIST changes: -ACLI1AER2 IN; +ACLI1AER2 INH; +GABA-339 PO
== END | disposition home or self-care (01) ==
LOC: Rad HDHVI 14:16
PROVIDERS: ATTEND Internal Medicine Cardiovascular Disease
DX: I10 Essential (primary) hypertension (principal); I73.9 Peripheral vascular disease, unspecified; J44.9 Chronic obstructive pulmonary disease, unspecified; L97.909 Non-pressure chronic ulcer of unspecified part of unspecified lower leg with unspecified severity
CPT/HCPCS: 93925

== ENCOUNTER → 2020-05-21 | Outpatient (CLI) | payer MEDICARE, BC ==
[2020-05-21 10:30] VITALS: BP 152/54
[2020-05-21 10:45] VITALS: BP 158/56
[2020-05-21 15:51] LABS: Basophils # (auto) 0.1 10 ^3/uL (0-0.2); Basophils % (auto) 1.3 % (0.0-2.0); Eosinophils # (auto) 0.1 10 ^3/uL (0-0.8); Eosinophils % (auto) 2.9 % (0.0-7.0); Hematocrit 42.6 % (36.0-46.0); Hemoglobin 14.1 g/dL (12.2-16.2); Lymphocytes # (auto) 0.7 10 ^3/uL (0.4-5.4); Mean Corpuscular Hgb Conc. 33.1 g/dL (32.0-36.0); Mean Corpuscular Volume 102.6 fL (80.0-100.0); Monocytes # (auto) 0.7 10 ^3/uL (0-1.3); Monocytes % (auto) 14.1 % (0.0-12.0); Neutrophils # (auto) 3.4 10 ^3/uL (1.6-8.6); Neutrophils % (auto) 67.7 % (37.0-80.0); Nucleated Red Blood Cells % 0.1 %; Platelet Count (auto) 311 10^3/uL (140-450); Red Blood Cells 4.15 10^6/uL (4.0-5.20); Red Cell Distribution Width 13.8 % (11.8-14.3); White Blood Cell 5.1 10^3/uL (4.4-10.8)
[2020-05-21 16:00] LABS: BUN/Creatinine Ratio 27.7; Calcium 9.4 mg/dL (8.5-10.1); Potassium 4.3 mmol/L (3.5-5.1)
[2020-05-21 16:03] LABS: INR 0.99 (0.9-1.15); Partial Thromboplastin Time 28.3 sec (23.0-31.2)
== END | disposition home or self-care (01) ==
LOC: Rad HDHVI 10:04
PROVIDERS: ATTEND Internal Medicine Cardiovascular Disease
DX: Z01.812 Encounter for preprocedural laboratory examination (principal); I10 Essential (primary) hypertension; I73.9 Peripheral vascular disease, unspecified; I70.0 Atherosclerosis of aorta; J98.4 Other disorders of lung; M47.814 Spondylosis without myelopathy or radiculopathy, thoracic region
CPT/HCPCS: 36415; 71046; 80048; 85025; 85610; 85730; 93005; G0463

== ENCOUNTER 2020-05-27 07:02 | Inpatient (IN) | payer BC, MEDICARE ==
[~2020-05-27] VITALS: Ht 152.4 cm; Wt 47.9 kg
[~2020-05-27 07:02] MED LIST changes: -EST0625T PO; -FURO20TA3 PO; -GABA300C10 PO; -POTA10TA51 PO
[2020-05-27] MEDS ORDERED: LIDOCAINE 2%HCL (LOCAL ANESTH.) INJ 20ML MDV ONE ×2 (09:12→10:25)
[2020-05-27] MEDS ORDERED: ANGIOMAX 250 MG VIAL IV ONE (09:28)
[2020-05-27] MEDS ORDERED: fentaNYL CITRATE 100 MCG/2 ML VL ONE (09:29)
[2020-05-27] MEDS ORDERED: MIDAZOLAM HCL 1MG/1ML-2 ML VIAL ONE (09:29)
[2020-05-27] MEDS ORDERED: SODIUM CHL 0.9% 50 ML ONE (09:29)
[2020-05-27] MEDS ORDERED: IOHEXOL 350 MG/ML 100ML IJ ONE (09:29)
[2020-05-27] MEDS ORDERED: CLOPIDOGREL BISULFATE 75 MG TAB ONE (11:24)
[2020-05-27] MEDS ORDERED: HYDROcodone-ACET 5/325MG TAB PO PRN (12:15)
[2020-05-27] MEDS ORDERED: ONDANSETRON HCL 4 MG/2 ML VIAL IV PRN (12:15)
[2020-05-27] MEDS ORDERED: MORPHINE SULF INJ 2 MG/ML SYRINGE 1ML IV PRN (12:15)
[2020-05-27] MEDS ORDERED: NITROGLYCERIN 0.4 MG SL TAB SL PRN (12:15)
[2020-05-27] MEDS ORDERED: ZOLPIDEM TARTRATE 5 MG TAB PO PRN (12:15)
[2020-05-27] MEDS ORDERED: traMADol HCL 50 MG TAB PO PRN (13:30)
[2020-05-27] MEDS ORDERED: Azilsartan Medoxomil-Chlorthal (Edarbyclor 40-12.5 mg) TAB PO PRN (13:42)
[2020-05-27] MEDS ORDERED: GABAPENTIN 300 MG CAP PO SCH (14:00)
[2020-05-27] MEDS: HYDROcodone-ACET 10/325MG TAB PO PRN ×2 (16:13→20:17)
[2020-05-27 17:00] VITALS: BP 158/72
--- NOTE | 2020-05-27 19:00 | NUR ---
Opening Shift Note Assumed care of patient from day shift RN, patient awake and alert oriented x4. No S/S of distress/SOB or pain. Instructed on POC and to call for assist PRN, safety measures in place bed in lowest position, side rails up x2, and call light in reach will continue to monitor for changes Q1hr and PRN.
--- NOTE | 2020-05-27 20:17 | NUR ---
Patient states 8/10 pain to back, pain medication administered at this time.
[2020-05-27] MEDS: GABAPENTIN 300 MG CAP PO PRN (20:18)
--- NOTE | 2020-05-27 21:17 | NUR ---
patient states no pain at this time.
[2020-05-27 22:00] VITALS: BP 126/65
--- NOTE | 2020-05-28 03:20 | NUR ---
Patient complained of pain to neck and back 6/10. Pain medication administered.
--- NOTE | 2020-05-28 04:20 | NUR ---
pain reassessment patient states no pain at this time.
[2020-05-28 05:00] VITALS: BP 124/74
[2020-05-28] MEDS ORDERED: CLOPIDOGREL BISULFATE 75 MG TAB PO SCH (07:00)
[2020-05-28] MEDS ORDERED: ASPirin-EC 81 mg tab PO SCH (07:00)
--- NOTE | 2020-05-28 07:00 | NUR ---
Endorsed care to day shift RN, surgery site dressing clean and intact. Patient has no sob/pain/or distress. safety measures in place call light with in reach, bed in lowest position and side rails up x2.
--- NOTE | 2020-05-28 07:25 | NUR ---
Opening Shift Note Assumed care of patient, awake and alert. No S/S of distress/SOB, reports pain to back and neck. Instructed on POC and to call for assist PRN, will continue to monitor for changes Q1hr and PRN.
[2020-05-28] MEDS: HYDROcodone-ACET 10/325MG TAB PO PRN ×3 (07:37→18:43)
[2020-05-28 09:04] VITALS: BP 123/60
[2020-05-28] MEDS ORDERED: HYDROcodone-ACET 10/325MG TAB PO PRN ×2 (10:45→11:00)
[2020-05-28] MEDS: GABAPENTIN 300 MG CAP PO PRN (11:42)
[2020-05-28 13:00] VITALS: BP 115/57
[2020-05-28 13:36] VITALS: BP 115/57
--- NOTE | 2020-05-28 15:57 | NUR ---
Patient discharge prior to assessment. Social service consult for home health with [facility]. faxed clinical information to agency. Per Twyla with [facility] they will resume service for patient.
--- NOTE | 2020-05-28 18:46 | NUR ---
Discharge instructions given as ordered. Encourage to follow up with PMD as instructed. All questions and concerns addressed. Patient verbalized understanding. Medication reconciliation form completed and copy given to patient. Home medications held in Pharmacy returned to patient, and needed vaccines given. IV removed with catheter intact, pressure dressing applied, Telemetry unit returned to ICU. Patient taken to vehicle via wheelchair with all personal belongings, accompanied by staff and family member. No distress noted at time of departure.
== END 2020-05-28 18:50 | disposition home health service (06) | DRG 270 ==
LOC: CATH 07:02 → TELE-WESTW 16:30
PROVIDERS: ADMIT Internal Medicine Cardiovascular Disease; ATTEND Internal Medicine Cardiovascular Disease
PROC: 047K3ZZ Dilation of Right Femoral Artery, Percutaneous Approach (ICD-10-PCS; principal; 2020-05-27)
PROC: 04CK3ZZ Extirpation of Matter from Right Femoral Artery, Percutaneous Approach (ICD-10-PCS; 2020-05-27)
PROC: 047R3ZZ Dilation of Right Posterior Tibial Artery, Percutaneous Approach (ICD-10-PCS; 2020-05-27)
PROC: 047M3ZZ Dilation of Right Popliteal Artery, Percutaneous Approach (ICD-10-PCS; 2020-05-27)
PROC: 047T3ZZ Dilation of Right Peroneal Artery, Percutaneous Approach (ICD-10-PCS; 2020-05-27)
PROC: 04CM3ZZ Extirpation of Matter from Right Popliteal Artery, Percutaneous Approach (ICD-10-PCS; 2020-05-27)
PROC: 04CT3ZZ Extirpation of Matter from Right Peroneal Artery, Percutaneous Approach (ICD-10-PCS; 2020-05-27)
PROC: 04CR3ZZ Extirpation of Matter from Right Posterior Tibial Artery, Percutaneous Approach (ICD-10-PCS; 2020-05-27)
PROC: B41G1ZZ Fluoroscopy of Left Lower Extremity Arteries using Low Osmolar Contrast (ICD-10-PCS; 2020-05-27)
PROC: B41F1ZZ Fluoroscopy of Right Lower Extremity Arteries using Low Osmolar Contrast (ICD-10-PCS; 2020-05-27)
DX: I73.9 Peripheral vascular disease, unspecified (principal); E43 Unspecified severe protein-calorie malnutrition; L97.919 Non-pressure chronic ulcer of unspecified part of right lower leg with unspecified severity; R64 Cachexia; E78.5 Hyperlipidemia, unspecified; I10 Essential (primary) hypertension; J44.9 Chronic obstructive pulmonary disease, unspecified; I25.10 Atherosclerotic heart disease of native coronary artery without angina pectoris; Z20.828 Contact with and (suspected) exposure to other viral communicable diseases; I49.5 Sick sinus syndrome; F17.210 Nicotine dependence, cigarettes, uncomplicated; Z82.49 Family history of ischemic heart disease and other diseases of the circulatory system
CPT/HCPCS: 36415; 37225; 37229; 75716; 82565; 99152; 99153; C1769; G0378; J2250

== ENCOUNTER 2020-10-28 15:44 | Inpatient (IN) | payer MEDICARE, BC ==
[~2020-10-28] VITALS: Ht 152.4 cm; Wt 44.5 kg
[2020-10-28 16:24] LABS: Basophils # (auto) 0.1 10 ^3/uL (0-0.2); Basophils % (auto) 0.5 % (0.0-2.0); Eosinophils # (auto) 0 10 ^3/uL (0-0.8); Hematocrit 36.7 % (36.0-46.0); Hemoglobin 12.5 g/dL (12.2-16.2); Lymphocytes # (auto) 0.4 10 ^3/uL (0.4-5.4); Lymphocytes % (auto) 2.8 % (10.0-50.0); Mean Corpuscular Hemoglobin 32.7 pg (28.0-32.0); Mean Corpuscular Hgb Conc. 34.1 g/dL (32.0-36.0); Mean Corpuscular Volume 95.9 fL (80.0-100.0); Monocytes # (auto) 1.5 10 ^3/uL (0-1.3); Monocytes % (auto) 11.1 % (0.0-12.0); Neutrophils # (auto) 11.6 10 ^3/uL (1.6-8.6); Neutrophils % (auto) 85.6 % (37.0-80.0); Platelet Count (auto) 416 10^3/uL (140-450); Red Blood Cells 3.83 10^6/uL (4.0-5.20); Red Cell Distribution Width 13.8 % (11.8-14.3); White Blood Cell 13.5 10^3/uL (4.4-10.8)
[2020-10-28 16:38] LABS: Alanine Aminotransferase 19 U/L (13-56); Albumin 2.8 g/dL (3.4-5.0); Anion Gap 10 (5-15); Aspartate Aminotransferase 36 U/L (15-37); BUN/Creatinine Ratio 22.4; Blood Urea Nitrogen 15 mg/dL (7-18); Calcium 8.9 mg/dL (8.5-10.1); Carbon Dioxide 25 mmol/L (21-32); Chloride 99 mmol/L (98-107); GFR African American 109 mL/min; GFR Non-African American 90 mL/min; Glucose 101 mg/dL (74-106); Magnesium 1.9 mg/dL (1.6-2.6); Potassium 4.4 mmol/L (3.5-5.1); Sodium 134 mmol/L (136-145)
[2020-10-28 16:41] LABS: Alkaline Phosphatase 87 U/L (45-117); Bilirubin, Total 0.6 mg/dL (0.2-1.0); Partial Thromboplastin Time 31.6 sec (23.0-31.2)
[2020-10-28] MEDS ORDERED: HYDROcodone-ACET 5/325MG TAB PO ONE (17:30)
[2020-10-28] MEDS: SODIUM CHLORIDE 0.9% 1,000 ML IV SCH (21:35)
[2020-10-28] MEDS: PANTOPRAZOLE 40 MG TAB PO SCH (21:51)
[2020-10-28 22:08] LABS: Urine Bacteria FEW /hpf (None Seen); Urine Blood TRACE /uL (Negative); Urine Mucus FEW (None Seen); Urine Specific Gravity 1.019 (1.001-1.035); Urine WBC 4 /hpf (0 - 5)
[2020-10-28 22:44] VITALS: BP 163/78
[2020-10-28 23:50] VITALS: BP 152/75
[2020-10-29] MEDS: PIPERACILLIN-TAZOB 2.25GM 50 ML IV SCH ×4 (00:12→21:28)
[2020-10-29 01:00] VITALS: BP 153/78
[2020-10-29] MEDS: traMADol HCL 50 MG TAB PO PRN ×3 (02:06→20:31)
[2020-10-29 05:08] VITALS: BP 161/78
[2020-10-29 09:00] VITALS: BP 109/49
[2020-10-29] MEDS: PANTOPRAZOLE 40 MG TAB PO SCH (10:00)
[2020-10-29 13:00] VITALS: BP 135/72
[2020-10-29 17:00] VITALS: BP 123/79
[2020-10-29] MEDS: SODIUM CHLORIDE 0.9% 1,000 ML IV SCH (17:00)
[2020-10-29 22:00] VITALS: BP 150/78
[2020-10-30 05:00] VITALS: BP 130/73
[2020-10-30] MEDS: traMADol HCL 50 MG TAB PO PRN ×2 (05:20→14:02)
[2020-10-30] MEDS: PIPERACILLIN-TAZOB 2.25GM 50 ML IV SCH ×2 (05:20→14:02)
[2020-10-30 08:00] VITALS: BP 133/90
[2020-10-30 09:00] VITALS: BP 133/90
[2020-10-30] MEDS: PANTOPRAZOLE 40 MG TAB PO SCH (09:59)
[2020-10-30 13:10] VITALS: BP 142/81
[2020-10-30] MEDS: SODIUM CHLORIDE 0.9% 1,000 ML IV SCH (14:02)
[2020-10-30 14:54] LABS: Urine Bacteria NONE SEEN /hpf (None Seen); Urine Blood Negative /uL (Negative); Urine Hyaline Cast FEW /lpf (0 - 2); Urine Specific Gravity 1.026 (1.001-1.035); Urine WBC 34 /hpf (0 - 5)
[2020-10-30 16:05] VITALS: BP 142/81
[2020-10-30 17:00] VITALS: BP 141/72
== END 2020-10-30 17:20 | disposition home health service (06) | DRG 871 ==
LOC: ER 15:44 → EDBD 15:44 → TELE 21:05 → TELE-EAST 22:33 → TELE-CENTR 10-29 05:33
PROVIDERS: ADMIT Internal Medicine Cardiovascular Disease; ATTEND Internal Medicine Cardiovascular Disease
DX: A41.9 Sepsis, unspecified organism (principal); G93.41 Metabolic encephalopathy; E44.0 Moderate protein-calorie malnutrition; R64 Cachexia; Z68.1 Body mass index [BMI] 19.9 or less, adult; E86.9 Volume depletion, unspecified; J44.9 Chronic obstructive pulmonary disease, unspecified; M19.90 Unspecified osteoarthritis, unspecified site; I73.9 Peripheral vascular disease, unspecified; R62.7 Adult failure to thrive; Z20.822 Contact with and (suspected) exposure to COVID-19; I10 Essential (primary) hypertension; Z82.3 Family history of stroke; Z82.49 Family history of ischemic heart disease and other diseases of the circulatory system; Z83.6 Family history of other diseases of the respiratory system; Z83.3 Family history of diabetes mellitus; Z72.0 Tobacco use
CPT/HCPCS: 36415; 36600; 70450; 71045; 73070; 73090; 80053; 81001; 82805; 83605; 83735; 84484; 85025; 85610; 85730; 87040; 87086; 87426; 93005; G0378; J2543

== ENCOUNTER → 2020-11-05 | Outpatient (CLI) | payer MEDICARE ==
[2020-11-05 08:33] VITALS: BP 150/68
[2020-11-05 09:47] VITALS: BP 144/72
[2020-11-05 11:51] LABS: Calcium 9.8 mg/dL (8.5-10.1)
[2020-11-05 11:52] LABS: Basophils # (auto) 0.1 10 ^3/uL (0-0.2); Eosinophils # (auto) 0.2 10 ^3/uL (0-0.8); Lymphocytes # (auto) 0.7 10 ^3/uL (0.4-5.4); Lymphocytes % (auto) 7.7 % (10.0-50.0); White Blood Cell 9.1 10^3/uL (4.4-10.8)
[2020-11-05 11:56] LABS: BUN/Creatinine Ratio 23.9
[2020-11-05 12:00] LABS: Basophils % (auto) 1.5 % (0.0-2.0); Eosinophils % (auto) 1.9 % (0.0-7.0); Hematocrit 34.1 % (36.0-46.0); Hemoglobin 11.6 g/dL (12.2-16.2); Mean Corpuscular Hemoglobin 32.9 pg (28.0-32.0); Mean Corpuscular Hgb Conc. 34.1 g/dL (32.0-36.0); Mean Corpuscular Volume 96.4 fL (80.0-100.0); Monocytes # (auto) 1.2 10 ^3/uL (0-1.3); Monocytes % (auto) 13.1 % (0.0-12.0); Neutrophils # (auto) 6.9 10 ^3/uL (1.6-8.6); Neutrophils % (auto) 75.8 % (37.0-80.0); Nucleated Red Blood Cells % 0.2 %; Platelet Count (auto) 629 10^3/uL (140-450); Red Blood Cells 3.54 10^6/uL (4.0-5.20); Red Cell Distribution Width 13.5 % (11.8-14.3)
[2020-11-05 12:07] LABS: INR 1.03 (0.9-1.15); Partial Thromboplastin Time 29.7 sec (23.0-31.2)
== END | disposition home or self-care (01) ==
LOC: Rad HDHVI 09:11
PROVIDERS: ATTEND Internal Medicine Cardiovascular Disease
DX: Z01.812 Encounter for preprocedural laboratory examination (principal); I73.9 Peripheral vascular disease, unspecified; M62.461 Contracture of muscle, right lower leg; M62.48 Contracture of muscle, other site; I10 Essential (primary) hypertension
CPT/HCPCS: 36415; 80048; 85025; 85610; 85730; 93005; G0463

== ENCOUNTER 2020-11-11 09:01 | Inpatient (IN) | payer BC, MEDICARE ==
[~2020-11-11] VITALS: Ht 152.4 cm; Wt 45.3 kg
[~2020-11-11 09:01] MED LIST changes: -ACLI1AER2 INH; -HYDR-531 PO
[2020-11-11] MEDS ORDERED: IODIXANOL 320MG/ML 100ML BTL IV ONE ×2 (11:48→12:34)
[2020-11-11] MEDS ORDERED: LIDOCAINE 2%HCL (LOCAL ANESTH.) INJ 20ML MDV ONE (11:48)
[2020-11-11] MEDS ORDERED: IOHEXOL 350 MG/ML 100ML IJ ONE (11:53)
[2020-11-11] MEDS ORDERED: ANGIOMAX 250 MG VIAL IV ONE (11:53)
[2020-11-11] MEDS ORDERED: SODIUM CHL 0.9% 50 ML ONE (11:53)
[2020-11-11] MEDS ORDERED: MIDAZOLAM HCL 1MG/1ML-2 ML VIAL ONE (11:53)
[2020-11-11] MEDS ORDERED: fentaNYL CITRATE 100 MCG/2 ML VL ONE (11:53)
[2020-11-11] MEDS ORDERED: EPTIFIBATIDE INJ (2MG/ML) 10ML VIAL IV ONE (13:17)
[2020-11-11] MEDS ORDERED: NITROGLYCERIN 0.4 MG SL TAB SL PRN (14:00)
[2020-11-11] MEDS ORDERED: ONDANSETRON HCL 4 MG/2 ML VIAL IV PRN (14:00)
[2020-11-11] MEDS ORDERED: SODIUM CHLORIDE 0.9% 1,000 ML IV SCH (14:00)
[2020-11-11] MEDS ORDERED: MORPHINE SULF INJ 2 MG/ML SYRINGE 1ML IV PRN (14:00)
[2020-11-11] MEDS ORDERED: Azilsartan Medoxomil-Chlorthal (Edarbyclor 40-12.5 mg) TAB PO PRN (14:15)
[2020-11-11] MEDS ORDERED: GABAPENTIN 300 MG CAP PO PRN ×2 (14:30)
[2020-11-11] MEDS ORDERED: HYDROmorphone HCL 2 MG/ML VL IV PRN (14:30)
[2020-11-11] MEDS: HYDROmorphone HCL 2 MG/ML VL IV PRN ×2 (16:54→23:03)
[2020-11-11 17:00] VITALS: BP 121/55
[2020-11-11 17:26] VITALS: BP 121/55
[2020-11-11 22:00] VITALS: BP 106/54
[2020-11-12] MEDS: HYDROmorphone HCL 2 MG/ML VL IV PRN ×4 (03:13→22:26)
[2020-11-12 05:00] VITALS: BP 120/61
[2020-11-12] MEDS: ASPirin-EC 81 mg tab PO SCH (06:38)
[2020-11-12] MEDS: CLOPIDOGREL BISULFATE 75 MG TAB PO SCH (06:38)
[2020-11-12 09:00] VITALS: BP 101/45
[2020-11-12] MEDS: traMADol HCL 50 MG TAB PO PRN (10:48)
[2020-11-12 13:00] VITALS: BP 119/44
[2020-11-12 17:00] VITALS: BP 149/69
[2020-11-12 22:00] VITALS: BP 106/60
[2020-11-13 05:00] VITALS: BP 116/63
[2020-11-13] MEDS: HYDROmorphone HCL 2 MG/ML VL IV PRN (06:06)
[2020-11-13] MEDS: ASPirin-EC 81 mg tab PO SCH (06:07)
[2020-11-13] MEDS: CLOPIDOGREL BISULFATE 75 MG TAB PO SCH (06:07)
[2020-11-13 07:39] LABS: Basophils # (auto) 0.1 10 ^3/uL (0-0.2); Eosinophils # (auto) 0.2 10 ^3/uL (0-0.8); Hemoglobin 9.9 g/dL (12.2-16.2); Mean Corpuscular Hgb Conc. 34.7 g/dL (32.0-36.0); Neutrophils # (auto) 6.8 10 ^3/uL (1.6-8.6); Red Blood Cells 3.01 10^6/uL (4.0-5.20); White Blood Cell 8.6 10^3/uL (4.4-10.8)
[2020-11-13 07:40] LABS: Basophils % (auto) 1.2 % (0.0-2.0); Hematocrit 28.7 % (36.0-46.0); Lymphocytes # (auto) 0.6 10 ^3/uL (0.4-5.4); Mean Corpuscular Hemoglobin 33.1 pg (28.0-32.0); Mean Corpuscular Volume 95.4 fL (80.0-100.0); Monocytes % (auto) 11.5 % (0.0-12.0); Neutrophils % (auto) 78.3 % (37.0-80.0); Platelet Count (auto) 479 10^3/uL (140-450)
[2020-11-13 07:49] LABS: Albumin 2.6 g/dL (3.4-5.0); Calcium 8.8 mg/dL (8.5-10.1); Potassium 3.8 mmol/L (3.5-5.1)
[2020-11-13 07:53] LABS: BUN/Creatinine Ratio 22.8; Bilirubin, Total 0.4 mg/dL (0.2-1.0); Total Protein 6.6 g/dL (6.4-8.2)
[2020-11-13 08:41] VITALS: BP 118/64
[2020-11-13] MEDS: traMADol HCL 50 MG TAB PO PRN ×2 (10:28→17:43)
[2020-11-13 12:43] VITALS: BP 119/52
[2020-11-13 17:10] VITALS: BP 142/64
== END 2020-11-13 18:00 | disposition home health service (06) | DRG 252 ==
LOC: CATH 09:01 → TELE 09:02 → TELE-CENTR 16:54
PROVIDERS: ADMIT Internal Medicine Cardiovascular Disease; ATTEND Internal Medicine Cardiovascular Disease
PROC: 047K3ZZ Dilation of Right Femoral Artery, Percutaneous Approach (ICD-10-PCS; principal; 2020-11-11)
PROC: 047M3ZZ Dilation of Right Popliteal Artery, Percutaneous Approach (ICD-10-PCS; 2020-11-11)
PROC: 047P3ZZ Dilation of Right Anterior Tibial Artery, Percutaneous Approach (ICD-10-PCS; 2020-11-11)
PROC: 047J3ZZ Dilation of Left External Iliac Artery, Percutaneous Approach (ICD-10-PCS; 2020-11-11)
PROC: 047F3ZZ Dilation of Left Internal Iliac Artery, Percutaneous Approach (ICD-10-PCS; 2020-11-11)
PROC: B41G1ZZ Fluoroscopy of Left Lower Extremity Arteries using Low Osmolar Contrast (ICD-10-PCS; 2020-11-11)
PROC: B41F1ZZ Fluoroscopy of Right Lower Extremity Arteries using Low Osmolar Contrast (ICD-10-PCS; 2020-11-11)
PROC: 3E053PZ Introduction of Platelet Inhibitor into Peripheral Artery, Percutaneous Approach (ICD-10-PCS; 2020-11-11)
DX: I70.221 Atherosclerosis of native arteries of extremities with rest pain, right leg (principal); E43 Unspecified severe protein-calorie malnutrition; R64 Cachexia; Z68.1 Body mass index [BMI] 19.9 or less, adult; I70.92 Chronic total occlusion of artery of the extremities; J44.9 Chronic obstructive pulmonary disease, unspecified; G89.29 Other chronic pain; E78.5 Hyperlipidemia, unspecified; I10 Essential (primary) hypertension; I25.10 Atherosclerotic heart disease of native coronary artery without angina pectoris; M19.90 Unspecified osteoarthritis, unspecified site; M81.0 Age-related osteoporosis without current pathological fracture; Z20.822 Contact with and (suspected) exposure to COVID-19; M48.00 Spinal stenosis, site unspecified
CPT/HCPCS: 36415; 37224; 37228; 75716; 80053; 85025; 97110; 97116; 97163; 97530; 99152; 99153; C1769; C1876; G0378; J2250; Q9967

== ENCOUNTER → 2021-07-19 | Outpatient (CLI) | payer MEDICARE ==
[~2021-07-19] VITALS: Ht 152.4 cm; Wt 43.1 kg
[~2021-07-19] MED LIST changes: -ASPI-231 PO; +ASPI1TAB20 PO
== END | disposition home or self-care (01) ==
LOC: Rad HDHVI 09:46
PROVIDERS: ATTEND Internal Medicine Cardiovascular Disease
DX: I25.10 Atherosclerotic heart disease of native coronary artery without angina pectoris (principal); I10 Essential (primary) hypertension; J44.9 Chronic obstructive pulmonary disease, unspecified; E78.5 Hyperlipidemia, unspecified; R06.02 Shortness of breath; Z82.49 Family history of ischemic heart disease and other diseases of the circulatory system
CPT/HCPCS: 78452; 93017; 96374; A9500

== ENCOUNTER → 2021-07-22 | Outpatient (CLI) | payer MEDICARE | END | disposition home or self-care (01) | LOC: Rad HDHVI 10:02 | PROVIDERS: ATTEND Internal Medicine Cardiovascular Disease | DX: I07.1 Rheumatic tricuspid insufficiency (principal); R07.89 Other chest pain; E78.5 Hyperlipidemia, unspecified | CPT/HCPCS: 93306 ==

== ENCOUNTER → 2021-07-27 | Outpatient (CLI) | payer MEDICARE ==
[2021-07-27 11:30] LABS: Urine Blood Negative /uL (Negative); Urine Specific Gravity 1.009 (1.001-1.035)
[2021-07-27 11:33] LABS: Basophils # (auto) 0.1 10 ^3/uL (0-0.2); Basophils % (auto) 1.3 % (0.0-2.0); Eosinophils # (auto) 0.2 10 ^3/uL (0-0.8); Eosinophils % (auto) 4.7 % (0.0-7.0); Hematocrit 41.4 % (36.0-46.0); Hemoglobin 13.5 g/dL (12.2-16.2); Lymphocytes # (auto) 0.7 10 ^3/uL (0.4-5.4); Mean Corpuscular Hemoglobin 31.5 pg (28.0-32.0); Mean Corpuscular Hgb Conc. 32.7 g/dL (32.0-36.0); Mean Corpuscular Volume 96.4 fL (80.0-100.0); Monocytes # (auto) 0.6 10 ^3/uL (0-1.3); Monocytes % (auto) 13.3 % (0.0-12.0); Neutrophils # (auto) 3.1 10 ^3/uL (1.6-8.6); Neutrophils % (auto) 65.7 % (37.0-80.0); Nucleated Red Blood Cells % 0.1 %; Red Blood Cells 4.29 10^6/uL (4.0-5.20); Red Cell Distribution Width 15.2 % (11.8-14.3); White Blood Cell 4.7 10^3/uL (4.4-10.8)
[2021-07-27 11:42] LABS: Albumin 3.5 g/dL (3.4-5.0); Calcium 9.5 mg/dL (8.5-10.1); Potassium 4.3 mmol/L (3.5-5.1)
[2021-07-27 11:46] LABS: BUN/Creatinine Ratio 33.3; Bilirubin, Total 0.5 mg/dL (0.2-1.0); Total Protein 8.3 g/dL (6.4-8.2)
[2021-07-27 11:52] LABS: Free T4 (Free Thyroxine) 0.91 ng/dL (0.89-1.76)
== END | disposition home or self-care (01) ==
LOC: Rad HDHVI 09:09
PROVIDERS: ATTEND Internal Medicine Cardiovascular Disease
DX: D51.3 Other dietary vitamin B12 deficiency anemia (principal); R30.0 Dysuria; R00.2 Palpitations; I10 Essential (primary) hypertension; D64.9 Anemia, unspecified; E11.9 Type 2 diabetes mellitus without complications; E55.9 Vitamin D deficiency, unspecified; R53.1 Weakness
CPT/HCPCS: 36415; 80053; 80061; 81003; 82306; 82607; 83036; 84439; 84443; 85025

== ENCOUNTER → 2021-12-26 | Outpatient (CLI) | payer MEDICARE ==
[~2021-12-26] MED LIST changes: +BACITRACIN TOP OINT 1 UD PKG TOP ONE
[2021-12-26 12:08] VITALS: BP 140/94
[2021-12-26 13:05] VITALS: BP 143/94
== END | disposition home or self-care (01) ==
LOC: CHF HDHVI 12:10
PROVIDERS: ATTEND Internal Medicine
DX: S51.812A Laceration without foreign body of left forearm, initial encounter (principal); X58.XXXA Exposure to other specified factors, initial encounter; Y93.89 Activity, other specified; Y92.89 Other specified places as the place of occurrence of the external cause; Y99.8 Other external cause status
CPT/HCPCS: G0463

== ENCOUNTER → 2022-02-15 | Outpatient (CLI) | payer MEDICARE, BC ==
[~2022-02-15] MED LIST changes: -BACITRACIN TOP OINT 1 UD PKG TOP ONE
[2022-02-15 11:48] LABS: Basophils # (auto) 0.1 10 ^3/uL (0-0.2); Basophils % (auto) 1.2 % (0.0-2.0); Eosinophils # (auto) 0.1 10 ^3/uL (0-0.8); Eosinophils % (auto) 2.4 % (0.0-7.0); Hematocrit 40.8 % (36.0-46.0); Hemoglobin 13.2 g/dL (12.2-16.2); Lymphocytes # (auto) 0.6 10 ^3/uL (0.4-5.4); Lymphocytes % (auto) 9.8 % (10.0-50.0); Mean Corpuscular Hemoglobin 31.4 pg (28.0-32.0); Mean Corpuscular Hgb Conc. 32.4 g/dL (32.0-36.0); Monocytes # (auto) 0.7 10 ^3/uL (0-1.3); Monocytes % (auto) 12.9 % (0.0-12.0); Neutrophils # (auto) 4.2 10 ^3/uL (1.6-8.6); Neutrophils % (auto) 73.7 % (37.0-80.0); Red Cell Distribution Width 13.6 % (11.8-14.3); White Blood Cell 5.7 10^3/uL (4.4-10.8)
[2022-02-15 11:51] LABS: Urine Blood Negative /uL (Negative); Urine Specific Gravity 1.012 (1.001-1.035)
[2022-02-15 12:02] LABS: Albumin 3.3 g/dL (3.4-5.0); Potassium 4.5 mmol/L (3.5-5.1)
[2022-02-15 12:14] LABS: Bilirubin, Total 0.5 mg/dL (0.2-1.0); Calcium 9.5 mg/dL (8.5-10.1)
[2022-02-15 12:17] LABS: Free T4 (Free Thyroxine) 1.15 ng/dL (0.89-1.76)
== END | disposition home or self-care (01) ==
LOC: Rad HDHVI 09:06
PROVIDERS: ATTEND Internal Medicine Cardiovascular Disease
DX: D51.3 Other dietary vitamin B12 deficiency anemia (principal); D64.9 Anemia, unspecified; E11.9 Type 2 diabetes mellitus without complications; E55.9 Vitamin D deficiency, unspecified; I10 Essential (primary) hypertension; R00.2 Palpitations; R53.1 Weakness; R30.0 Dysuria
CPT/HCPCS: 36415; 80053; 80061; 81003; 82306; 82607; 83036; 84439; 84443; 85025

== ENCOUNTER 2022-03-27 16:00 | Inpatient (IN) | payer MEDICARE, BC ==
[~2022-03-27] VITALS: Ht 152.4 cm; Wt 49.1 kg
[2022-03-27 17:11] LABS: Basophils # (auto) 0 10 ^3/uL (0-0.2); Basophils % (auto) 0.2 % (0.0-2.0); Eosinophils # (auto) 0.2 10 ^3/uL (0-0.8); Eosinophils % (auto) 2.9 % (0.0-7.0); Hematocrit 36.7 % (36.0-46.0); Lymphocytes # (auto) 0.7 10 ^3/uL (0.4-5.4); Lymphocytes % (auto) 10.8 % (10.0-50.0); Mean Corpuscular Hgb Conc. 32.7 g/dL (32.0-36.0); Mean Corpuscular Volume 94.9 fL (80.0-100.0); Monocytes # (auto) 0.8 10 ^3/uL (0-1.3); Monocytes % (auto) 11.8 % (0.0-12.0); Neutrophils % (auto) 74.3 % (37.0-80.0); Nucleated Red Blood Cells % 0.1 %; Red Blood Cells 3.86 10^6/uL (4.0-5.20); Red Cell Distribution Width 13.3 % (11.8-14.3); White Blood Cell 6.7 10^3/uL (4.4-10.8)
[2022-03-27 17:24] LABS: Calcium 9.3 mg/dL (8.5-10.1); Potassium 4.5 mmol/L (3.5-5.1)
[2022-03-27 17:33] LABS: BUN/Creatinine Ratio 27.3; Bilirubin, Total 0.3 mg/dL (0.2-1.0); CRP High Sensitivity 3.07 mg/dL (< 0.3); Total Protein 7.6 g/dL (6.4-8.2)
[2022-03-27] MEDS ORDERED: CLINDAMYCIN 900MG IV 50 ML IV ONE (19:00)
[2022-03-28] MEDS ORDERED: VANCOMYCIN 1GM/250ML 250 ML IV ONE (03:00)
[2022-03-28] MEDS: cefTRIAXone 1GM/50ML D5W 50 ML IV SCH (04:40)
[2022-03-28] MEDS: GABAPENTIN 300 MG CAP PO SCH ×3 (06:19→21:28)
[2022-03-28] MEDS: traMADol HCL 50 MG TAB PO SCH ×3 (06:22→21:55)
[2022-03-28 09:00] VITALS: BP 96/45
[2022-03-28] MEDS: CLOPIDOGREL BISULFATE 75 MG TAB PO SCH (10:12)
[2022-03-28] MEDS: SILDENAFIL CITRATE 20 MG TAB PO SCH ×3 (10:12→21:27)
[2022-03-28 13:00] VITALS: BP 141/40
[2022-03-28 13:09] VITALS: BP 96/45
[2022-03-28 17:00] VITALS: BP 122/38
[2022-03-28] MEDS: SODIUM CHLORIDE 0.9% 1,000 ML IV SCH (18:44)
[2022-03-28 22:00] VITALS: BP 135/33
[2022-03-29] MEDS: SODIUM CHLORIDE 0.9% 1,000 ML IV SCH ×2 (04:15→14:15)
[2022-03-29 05:00] VITALS: BP 146/115
[2022-03-29] MEDS: GABAPENTIN 300 MG CAP PO SCH ×3 (05:25→20:23)
[2022-03-29] MEDS: traMADol HCL 50 MG TAB PO SCH ×3 (05:25→20:23)
[2022-03-29] MEDS: cefTRIAXone 1GM/50ML D5W 50 ML IV SCH (08:48)
[2022-03-29] MEDS: SILDENAFIL CITRATE 20 MG TAB PO SCH ×3 (08:48→20:23)
[2022-03-29] MEDS: CLOPIDOGREL BISULFATE 75 MG TAB PO SCH (08:48)
[2022-03-29 09:00] VITALS: BP 123/55
[2022-03-29] MEDS ORDERED: VANCOMYCIN 1GM/250ML 250 ML IV SCH (10:00)
[2022-03-29 13:00] VITALS: BP 106/40
[2022-03-29 17:00] VITALS: BP 116/47
[2022-03-29] MEDS ORDERED: VANCOMYCIN PER PHARMACY 1,000 MG IV SCH (17:45)
[2022-03-29] MEDS: VANCOMYCIN 1GM/250ML 250 ML IV SCH (20:23)
[2022-03-29] MEDS: TEMAZEPAM 15 MG CAP PO PRN (20:24)
[2022-03-29 22:00] VITALS: BP 98/59
[2022-03-30] MEDS: GABAPENTIN 300 MG CAP PO SCH ×3 (04:28→20:26)
[2022-03-30] MEDS: traMADol HCL 50 MG TAB PO SCH ×3 (04:28→20:27)
[2022-03-30 05:00] VITALS: BP 118/56
[2022-03-30] MEDS: SODIUM CHLORIDE 0.9% 1,000 ML IV SCH (05:10)
[2022-03-30] MEDS: SILDENAFIL CITRATE 20 MG TAB PO SCH ×3 (08:46→20:26)
[2022-03-30 09:00] VITALS: BP 165/54
[2022-03-30] MEDS: cefTRIAXone 1GM/50ML D5W 50 ML IV SCH (10:25)
[2022-03-30] MEDS: CLOPIDOGREL BISULFATE 75 MG TAB PO SCH (10:26)
[2022-03-30 10:53] LABS: Basophils # (auto) 0.1 10 ^3/uL (0-0.2); Basophils % (auto) 1.2 % (0.0-2.0); Eosinophils # (auto) 0.2 10 ^3/uL (0-0.8); Eosinophils % (auto) 3.1 % (0.0-7.0); Hematocrit 37.3 % (36.0-46.0); Hemoglobin 12.2 g/dL (12.2-16.2); Lymphocytes # (auto) 0.5 10 ^3/uL (0.4-5.4); Lymphocytes % (auto) 9.6 % (10.0-50.0); Mean Corpuscular Hemoglobin 31.8 pg (28.0-32.0); Mean Corpuscular Hgb Conc. 32.8 g/dL (32.0-36.0); Mean Corpuscular Volume 96.8 fL (80.0-100.0); Monocytes # (auto) 0.8 10 ^3/uL (0-1.3); Monocytes % (auto) 14.9 % (0.0-12.0); Neutrophils # (auto) 3.6 10 ^3/uL (1.6-8.6); Neutrophils % (auto) 71.2 % (37.0-80.0); Red Blood Cells 3.85 10^6/uL (4.0-5.20); White Blood Cell 5.1 10^3/uL (4.4-10.8)
[2022-03-30 11:12] LABS: Albumin 2.7 g/dL (3.4-5.0); Calcium 8.9 mg/dL (8.5-10.1); Potassium 4.1 mmol/L (3.5-5.1)
[2022-03-30 11:16] LABS: BUN/Creatinine Ratio 21.9; Bilirubin, Total 0.4 mg/dL (0.2-1.0); Total Protein 6.7 g/dL (6.4-8.2)
[2022-03-30 13:00] VITALS: BP 134/47
[2022-03-30 17:00] VITALS: BP 118/37
[2022-03-30] MEDS: VANCOMYCIN 1GM/250ML 250 ML IV SCH (20:25)
[2022-03-30 22:00] VITALS: BP 121/49
[2022-03-30] MEDS: CLOTRIMAZOLE W/ BETAMETH TOPICAL CR 15 GM TUBE TOP SCH (22:00)
[2022-03-31] VITALS (8 sets, daily range): BP systolic 135–156; BP diastolic 40–54
[2022-03-31] MEDS: GABAPENTIN 300 MG CAP PO SCH ×3 (05:56→21:09)
[2022-03-31] MEDS: traMADol HCL 50 MG TAB PO SCH ×3 (05:57→21:09)
[2022-03-31 07:23] LABS: INR 0.99 (0.9-1.15); Partial Thromboplastin Time 30.5 sec (24.6-33.4)
[2022-03-31] MEDS: Ensure HIGH Protein Chocolate 8oz Bottle PO SCH ×3 (08:00→18:25)
[2022-03-31] MEDS: SILDENAFIL CITRATE 20 MG TAB PO SCH ×3 (09:49→21:09)
[2022-03-31] MEDS: cefTRIAXone 1GM/50ML D5W 50 ML IV SCH (09:50)
[2022-03-31] MEDS: CLOPIDOGREL BISULFATE 75 MG TAB PO SCH (09:50)
[2022-03-31] MEDS: CLOTRIMAZOLE W/ BETAMETH TOPICAL CR 15 GM TUBE TOP SCH ×2 (09:50→21:28)
[2022-03-31] MEDS ORDERED: LIDOCAINE 2%HCL (LOCAL ANESTH.) INJ 20ML MDV ONE (15:17)
[2022-03-31] MEDS ORDERED: fentaNYL CITRATE 100 MCG/2 ML VL ONE (15:20)
[2022-03-31] MEDS ORDERED: ANGIOMAX 250 MG VIAL IV ONE (15:20)
[2022-03-31] MEDS ORDERED: SODIUM CHL 0.9% 50 ML ONE (15:21)
[2022-03-31] MEDS ORDERED: MIDAZOLAM HCL 2MG/2ML 2ml VIAL (1mg/ml) ONE (15:21)
[2022-03-31] MEDS: VANCOMYCIN 1GM/250ML 250 ML IV SCH (21:08)
[2022-03-31] MEDS: TEMAZEPAM 15 MG CAP PO PRN (21:10)
[2022-04-01 05:00] VITALS: BP 129/37
[2022-04-01] MEDS: traMADol HCL 50 MG TAB PO SCH ×3 (05:59→20:14)
[2022-04-01] MEDS: GABAPENTIN 300 MG CAP PO SCH ×3 (05:59→20:13)
[2022-04-01] MEDS: Ensure HIGH Protein Chocolate 8oz Bottle PO SCH ×3 (08:23→18:00)
[2022-04-01] MEDS: SILDENAFIL CITRATE 20 MG TAB PO SCH ×3 (08:23→20:13)
[2022-04-01 09:00] VITALS: BP 128/36
[2022-04-01] MEDS: cefTRIAXone 1GM/50ML D5W 50 ML IV SCH (10:05)
[2022-04-01] MEDS: CLOTRIMAZOLE W/ BETAMETH TOPICAL CR 15 GM TUBE TOP SCH ×2 (10:05→23:15)
[2022-04-01] MEDS: CLOPIDOGREL BISULFATE 75 MG TAB PO SCH (10:05)
[2022-04-01 13:00] VITALS: BP 118/34
[2022-04-01 16:59] VITALS: BP 120/33
[2022-04-01] MEDS: VANCOMYCIN 1GM/250ML 250 ML IV SCH (20:00)
[2022-04-01 22:00] VITALS: BP 156/45
[2022-04-02] MEDS: TEMAZEPAM 15 MG CAP PO PRN ×2 (03:46→20:30)
[2022-04-02 04:43] VITALS: BP 152/46
[2022-04-02 05:33] LABS: Albumin 2.5 g/dL (3.4-5.0); BUN/Creatinine Ratio 30.4; Calcium 8.8 mg/dL (8.5-10.1); Phosphorus 3.8 mg/dL (2.5-4.90); Potassium 3.9 mmol/L (3.5-5.1)
[2022-04-02] MEDS: traMADol HCL 50 MG TAB PO SCH ×3 (06:41→20:30)
[2022-04-02] MEDS: GABAPENTIN 300 MG CAP PO SCH ×3 (06:41→20:28)
[2022-04-02] MEDS: Ensure HIGH Protein Chocolate 8oz Bottle PO SCH ×3 (08:30→18:22)
[2022-04-02] MEDS: cefTRIAXone 1GM/50ML D5W 50 ML IV SCH (08:44)
[2022-04-02] MEDS: SILDENAFIL CITRATE 20 MG TAB PO SCH ×3 (08:44→20:29)
[2022-04-02] MEDS: CLOPIDOGREL BISULFATE 75 MG TAB PO SCH (08:44)
[2022-04-02] MEDS: CLOTRIMAZOLE W/ BETAMETH TOPICAL CR 15 GM TUBE TOP SCH ×2 (08:44→20:30)
[2022-04-02 09:25] VITALS: BP 143/41
[2022-04-02] MEDS: VANCOMYCIN 750mg/250ml 250 ML IV SCH (11:20)
[2022-04-02 12:22] VITALS: BP 119/34
[2022-04-02 17:16] VITALS: BP 103/34
[2022-04-02 22:00] VITALS: BP 134/45
[2022-04-03] VITALS (9 sets, daily range): BP systolic 107–168; BP diastolic 41–64
[2022-04-03 05:02] LABS: Hematocrit 34.9 % (36.0-46.0); Hemoglobin 11.6 g/dL (12.2-16.2); Mean Corpuscular Hemoglobin 31.7 pg (28.0-32.0); Mean Corpuscular Hgb Conc. 33.4 g/dL (32.0-36.0); Mean Corpuscular Volume 95.1 fL (80.0-100.0); Red Blood Cells 3.67 10^6/uL (4.0-5.20); Red Cell Distribution Width 13.4 % (11.8-14.3); White Blood Cell 3.9 10^3/uL (4.4-10.8)
[2022-04-03 05:18] LABS: Basophils % (manual) 0 (0.0-2.0); Blast Cells 0; Metamyelocytes % 0; Myelocytes % 0; Promyelocytes % 0; Reactive Lymphocytes 0
[2022-04-03] MEDS: traMADol HCL 50 MG TAB PO SCH ×3 (05:46→21:05)
[2022-04-03] MEDS: GABAPENTIN 300 MG CAP PO SCH ×3 (05:46→21:04)
[2022-04-03 06:49] LABS: Band Neutrophils % (manual) 7; Eosinophils % (manual) 8 (0-7); Lymphocytes % (manual) 19 (10.0-50.0); Monocytes % (manual) 11 (0-12)
[2022-04-03] MEDS: SILDENAFIL CITRATE 20 MG TAB PO SCH ×3 (08:00→21:04)
[2022-04-03] MEDS: Ensure HIGH Protein Chocolate 8oz Bottle PO SCH ×3 (08:00→18:00)
[2022-04-03 08:53] LABS: BUN/Creatinine Ratio 27.4; Calcium 9.2 mg/dL (8.5-10.1); Potassium 4.1 mmol/L (3.5-5.1)
[2022-04-03] MEDS: CLOPIDOGREL BISULFATE 75 MG TAB PO SCH (10:00)
[2022-04-03] MEDS: CLOTRIMAZOLE W/ BETAMETH TOPICAL CR 15 GM TUBE TOP SCH ×2 (10:00→21:28)
[2022-04-03] MEDS: cefTRIAXone 1GM/50ML D5W 50 ML IV SCH (10:00)
[2022-04-03 10:23] LABS: INR 1.03 (0.9-1.15); Partial Thromboplastin Time 31.3 sec (24.6-33.4)
[2022-04-03] MEDS: VANCOMYCIN 750mg/250ml 250 ML IV SCH (11:25)
[2022-04-03] MEDS ORDERED: LIDOCAINE 2%HCL (LOCAL ANESTH.) INJ 20ML MDV ONE (14:16)
[2022-04-03] MEDS ORDERED: ANGIOMAX 250 MG VIAL IV ONE (14:18)
[2022-04-03] MEDS ORDERED: fentaNYL CITRATE 100 MCG/2 ML VL ONE (14:18)
[2022-04-03] MEDS ORDERED: SODIUM CHL 0.9% 50 ML ONE (14:19)
[2022-04-03] MEDS ORDERED: MIDAZOLAM HCL 2MG/2ML 2ml VIAL (1mg/ml) ONE (14:19)
[2022-04-03] MEDS ORDERED: CLOPIDOGREL BISULFATE 75 MG TAB ONE (15:45)
[2022-04-04 05:00] VITALS: BP 121/39
[2022-04-04] MEDS: GABAPENTIN 300 MG CAP PO SCH (06:45)
[2022-04-04] MEDS: traMADol HCL 50 MG TAB PO SCH (06:50)
[2022-04-04] MEDS: SILDENAFIL CITRATE 20 MG TAB PO SCH (08:48)
[2022-04-04] MEDS: CLOPIDOGREL BISULFATE 75 MG TAB PO SCH (08:48)
[2022-04-04] MEDS: Ensure HIGH Protein Chocolate 8oz Bottle PO SCH (08:48)
[2022-04-04] MEDS: CLOTRIMAZOLE W/ BETAMETH TOPICAL CR 15 GM TUBE TOP SCH (08:49)
[2022-04-04] MEDS: cefTRIAXone 1GM/50ML D5W 50 ML IV SCH (08:49)
[2022-04-04 09:00] VITALS: BP 123/45
[2022-04-04 13:02] VITALS: BP 112/40
== END 2022-04-04 14:00 | disposition home or self-care (01) | DRG 580 ==
LOC: ER 16:00 → OVERFLOW 03-28 01:59 → CENTRAL 03-28 08:34
PROVIDERS: ADMIT Internal Medicine Cardiovascular Disease; ATTEND Internal Medicine Cardiovascular Disease
PROC: B41G1ZZ Fluoroscopy of Left Lower Extremity Arteries using Low Osmolar Contrast (ICD-10-PCS; principal; 2022-03-31)
PROC: B41F1ZZ Fluoroscopy of Right Lower Extremity Arteries using Low Osmolar Contrast (ICD-10-PCS; 2022-03-31)
PROC: 047D3ZZ Dilation of Left Common Iliac Artery, Percutaneous Approach (ICD-10-PCS; 2022-04-03)
PROC: 04CK3ZZ Extirpation of Matter from Right Femoral Artery, Percutaneous Approach (ICD-10-PCS; 2022-04-03)
PROC: 04CM3ZZ Extirpation of Matter from Right Popliteal Artery, Percutaneous Approach (ICD-10-PCS; 2022-04-03)
PROC: 04CT3ZZ Extirpation of Matter from Right Peroneal Artery, Percutaneous Approach (ICD-10-PCS; 2022-04-03)
PROC: 04CP3ZZ Extirpation of Matter from Right Anterior Tibial Artery, Percutaneous Approach (ICD-10-PCS; 2022-04-03)
PROC: 04FP3ZZ Fragmentation of Right Anterior Tibial Artery, Percutaneous Approach (ICD-10-PCS; 2022-04-03)
PROC: 04FM3ZZ Fragmentation of Right Popliteal Artery, Percutaneous Approach (ICD-10-PCS; 2022-04-03)
PROC: 04FK3ZZ Fragmentation of Right Femoral Artery, Percutaneous Approach (ICD-10-PCS; 2022-04-03)
PROC: 047L3ZZ Dilation of Left Femoral Artery, Percutaneous Approach (ICD-10-PCS; 2022-04-03)
PROC: B41F1ZZ Fluoroscopy of Right Lower Extremity Arteries using Low Osmolar Contrast (ICD-10-PCS; 2022-04-03)
DX: L03.116 Cellulitis of left lower limb (principal); R64 Cachexia; Z68.1 Body mass index [BMI] 19.9 or less, adult; I73.9 Peripheral vascular disease, unspecified; Z93.3 Colostomy status; I10 Essential (primary) hypertension; J44.9 Chronic obstructive pulmonary disease, unspecified; M81.0 Age-related osteoporosis without current pathological fracture; Z20.822 Contact with and (suspected) exposure to COVID-19; I25.10 Atherosclerotic heart disease of native coronary artery without angina pectoris
CPT/HCPCS: 36415; 71045; 80048; 80053; 80069; 80202; 82565; 83605; 85007; 85025; 85027; 85610; 85730; 86141; 87077; 87086; 87186; 87205; 93005; 93971; 96365; 96367; 99152; 99153; C1769; G0378; J0696; J2250; J3490

== ENCOUNTER → 2022-07-31 | Outpatient (CLI) | payer MEDICARE, BC ==
[~2022-07-31] MED LIST changes: +CHOL500033 PO; +CILO100T PO; +PREG50CA PO
[2022-07-31 10:23] VITALS: BP 152/65
[2022-07-31 10:54] VITALS: BP 132/61
[2022-07-31 12:00] LABS: Basophils # (auto) 0.1 10 ^3/uL (0-0.2); Eosinophils # (auto) 0.1 10 ^3/uL (0-0.8); Monocytes # (auto) 0.9 10 ^3/uL (0-1.3); Neutrophils # (auto) 4.2 10 ^3/uL (1.6-8.6); Nucleated Red Blood Cells % 0.2 %; White Blood Cell 6.1 10^3/uL (4.4-10.8)
[2022-07-31 12:04] LABS: Basophils % (auto) 1.3 % (0.0-2.0); Hematocrit 37.3 % (36.0-46.0); Hemoglobin 12.2 g/dL (12.2-16.2); Lymphocytes # (auto) 0.9 10 ^3/uL (0.4-5.4); Lymphocytes % (auto) 14.5 % (10.0-50.0); Mean Corpuscular Hemoglobin 30.9 pg (28.0-32.0); Mean Corpuscular Hgb Conc. 32.6 g/dL (32.0-36.0); Neutrophils % (auto) 68.2 % (37.0-80.0); Red Blood Cells 3.93 10^6/uL (4.0-5.20); Red Cell Distribution Width 14.5 % (11.8-14.3)
[2022-07-31 12:12] LABS: BUN/Creatinine Ratio 26.5; Calcium 9.5 mg/dL (8.5-10.1); Potassium 4.7 mmol/L (3.5-5.1)
[2022-07-31 12:20] LABS: INR 0.98 (0.9-1.15); Partial Thromboplastin Time 31.3 sec (24.6-33.4)
== END | disposition home or self-care (01) ==
LOC: Rad HDHVI 10:02
PROVIDERS: ATTEND Internal Medicine Cardiovascular Disease
DX: R79.1 Abnormal coagulation profile (principal); R94.31 Abnormal electrocardiogram [ECG] [EKG]
CPT/HCPCS: 36415; 71046; 80048; 85025; 85610; 85730; 93005; G0463; U0003

== ENCOUNTER 2022-08-03 07:02 | Day surgery (SDC) | payer MEDICARE, BC ==
[~2022-08-03] VITALS: Ht 152.4 cm; Wt 39.9 kg
[2022-08-03] VITALS (9 sets, daily range): BP systolic 116–135; BP diastolic 51–83
[2022-08-03] MEDS ORDERED: VERAPAMIL 2.5MG/ML INJ 2ML VIAL IV ONE (09:45)
[2022-08-03] MEDS ORDERED: ANGIOMAX 250 MG VIAL IV ONE (09:45)
[2022-08-03] MEDS ORDERED: fentaNYL CITRATE 100 MCG/2 ML VL ONE (09:46)
[2022-08-03] MEDS ORDERED: MIDAZOLAM HCL 2MG/2ML 2ml VIAL (1mg/ml) ONE (09:46)
[2022-08-03] MEDS ORDERED: SODIUM CHL 0.9% 50 ML ONE (09:46)
[2022-08-03] MEDS ORDERED: LIDOCAINE 2%HCL (LOCAL ANESTH.) INJ 10ml MDV ONE (09:47)
[2022-08-03] MEDS ORDERED: IOHEXOL 350 MG/ML 100ML IJ ONE (09:48)
[2022-08-03] MEDS ORDERED: HYDROmorphone HCL 2 MG/ML VL/or syr ONE (10:50)
[2022-08-03] MEDS ORDERED: HYDROmorphone HCL 2 MG/ML VL/or syr IV ONE (14:15)
== END 2022-08-03 16:15 | disposition home or self-care (01) ==
LOC: CATH 07:02
PROVIDERS: ATTEND Internal Medicine Cardiovascular Disease
DX: I70.203 Unspecified atherosclerosis of native arteries of extremities, bilateral legs (principal); J44.9 Chronic obstructive pulmonary disease, unspecified; Z99.81 Dependence on supplemental oxygen; Z87.891 Personal history of nicotine dependence; G89.4 Chronic pain syndrome; M19.90 Unspecified osteoarthritis, unspecified site; Z20.822 Contact with and (suspected) exposure to COVID-19
CPT/HCPCS: 37225; 37229; C1724; C1725; C1769; C1887; C1894; J0583; J1170; J1644; J2001; J2250; J3010; J7030; Q9967; U0003; 99152; 99153

== ENCOUNTER → 2022-09-04 | Outpatient (CLI) | payer MEDICARE, BC ==
[2022-09-04 09:29] VITALS: BP 128/64
[2022-09-04 11:42] LABS: Basophils # (auto) 0.1 10 ^3/uL (0-0.2); Basophils % (auto) 1.1 % (0.0-2.0); Eosinophils # (auto) 0.2 10 ^3/uL (0-0.8); Eosinophils % (auto) 3.3 % (0.0-7.0); Hematocrit 39.3 % (36.0-46.0); Hemoglobin 12.8 g/dL (12.2-16.2); Lymphocytes # (auto) 0.7 10 ^3/uL (0.4-5.4); Mean Corpuscular Hemoglobin 31.2 pg (28.0-32.0); Mean Corpuscular Hgb Conc. 32.5 g/dL (32.0-36.0); Monocytes # (auto) 0.8 10 ^3/uL (0-1.3); Monocytes % (auto) 14.1 % (0.0-12.0); Neutrophils # (auto) 3.8 10 ^3/uL (1.6-8.6); Neutrophils % (auto) 68.5 % (37.0-80.0); Nucleated Red Blood Cells % 0.1 %; Red Cell Distribution Width 14.6 % (11.8-14.3); White Blood Cell 5.6 10^3/uL (4.4-10.8)
[2022-09-04 11:44] LABS: Potassium 5.1 mmol/L (3.5-5.1)
[2022-09-04 12:05] LABS: INR 0.98 (0.9-1.15); Partial Thromboplastin Time 28.8 sec (24.6-33.4)
== END | disposition home or self-care (01) ==
LOC: Rad HDHVI 09:11
PROVIDERS: ATTEND Internal Medicine Cardiovascular Disease
DX: R06.02 Shortness of breath (principal)
CPT/HCPCS: 36415; 80048; 85025; 85610; 85730; G0463

== ENCOUNTER 2022-09-07 07:07 | Day surgery (SDC) | payer MEDICARE, BC ==
[~2022-09-07] VITALS: Ht 152.4 cm; Wt 40.8 kg
[2022-09-07] VITALS (8 sets, daily range): BP systolic 94–125; BP diastolic 35–50
[~2022-09-07 07:07] MED LIST changes: -PREG50CA PO
[2022-09-07] MEDS ORDERED: IODIXANOL 320MG/ML 100ML BTL IV ONE (07:44)
[2022-09-07] MEDS ORDERED: IOHEXOL 350 MG/ML 100ML IJ ONE ×2 (07:45→08:30)
[2022-09-07] MEDS ORDERED: LIDOCAINE 2%HCL (LOCAL ANESTH.) INJ 20ML MDV ONE (07:45)
[2022-09-07] MEDS ORDERED: LIDOCAINE 2%HCL (LOCAL ANESTH.) INJ 10ml MDV ONE (08:30)
[2022-09-07] MEDS ORDERED: fentaNYL CITRATE 100 MCG/2 ML VL ONE (08:32)
[2022-09-07] MEDS ORDERED: SODIUM CHL 0.9% 50 ML ONE (08:32)
[2022-09-07] MEDS ORDERED: MIDAZOLAM HCL 2MG/2ML 2ml VIAL (1mg/ml) ONE (08:32)
[2022-09-07] MEDS ORDERED: ANGIOMAX 250 MG VIAL IV ONE (08:32)
[2022-09-07] MEDS ORDERED: HYDROmorphone HCL 2 MG/ML VL/or syr ONE (09:34)
[2022-09-07] MEDS ORDERED: traMADol HCL 50 MG TAB PO ONE (11:30)
== END 2022-09-07 12:40 | disposition home or self-care (01) ==
LOC: CATH 07:07
PROVIDERS: ATTEND Internal Medicine Cardiovascular Disease
DX: I70.213 Atherosclerosis of native arteries of extremities with intermittent claudication, bilateral legs (principal); I70.203 Unspecified atherosclerosis of native arteries of extremities, bilateral legs; J44.9 Chronic obstructive pulmonary disease, unspecified; M19.90 Unspecified osteoarthritis, unspecified site; F17.200 Nicotine dependence, unspecified, uncomplicated; Z20.822 Contact with and (suspected) exposure to COVID-19
CPT/HCPCS: 37184; 37185; C1725; C1760; C1769; C1887; C1894; J0583; J1644; J2250; J3010; J7030; Q9967; U0003; 99152; 99153; J2001

== ENCOUNTER → 2022-09-19 | Outpatient (CLI) | payer MEDICARE, BC ==
[2022-09-19 13:15] VITALS: BP 113/57
[2022-09-19 13:47] VITALS: BP 118/46
== END | disposition home or self-care (01) ==
LOC: CHF HDHVI 13:17
PROVIDERS: ATTEND Internal Medicine Cardiovascular Disease
DX: S91.301A Unspecified open wound, right foot, initial encounter (principal); R22.41 Localized swelling, mass and lump, right lower limb; L03.115 Cellulitis of right lower limb; X58.XXXA Exposure to other specified factors, initial encounter; Y93.89 Activity, other specified; Y92.89 Other specified places as the place of occurrence of the external cause; Y99.8 Other external cause status
CPT/HCPCS: G0463

== ENCOUNTER 2022-09-21 13:26 | Inpatient (IN) | payer MEDICARE, BC ==
[~2022-09-21] VITALS: Ht 154.9 cm; Wt 38.6 kg
[2022-09-21 14:04] LABS: Hematocrit 32.6 % (36.0-46.0); Hemoglobin 10.7 g/dL (12.2-16.2); Lymphocytes # (auto) 0.7 10 ^3/uL (0.4-5.4); Mean Corpuscular Hemoglobin 31.5 pg (28.0-32.0)
[2022-09-21 14:06] LABS: Basophils # (auto) 0.1 10 ^3/uL (0-0.2); Basophils % (auto) 1.2 % (0.0-2.0); Eosinophils # (auto) 0.2 10 ^3/uL (0-0.8); Eosinophils % (auto) 2.1 % (0.0-7.0); Lymphocytes % (auto) 9.4 % (10.0-50.0); Mean Corpuscular Hgb Conc. 32.9 g/dL (32.0-36.0); Mean Corpuscular Volume 95.8 fL (80.0-100.0); Monocytes % (auto) 13.6 % (0.0-12.0); Neutrophils # (auto) 5.5 10 ^3/uL (1.6-8.6); Neutrophils % (auto) 73.7 % (37.0-80.0); White Blood Cell 7.5 10^3/uL (4.4-10.8)
[2022-09-21 14:27] LABS: Albumin 2.8 g/dL (3.4-5.0); Anion Gap 8 (5-15); Blood Alcohol < 3.0 mg/dL (0-5); Blood Urea Nitrogen 59 mg/dL (7-18); Calcium 8.9 mg/dL (8.5-10.1); Carbon Dioxide 22 mmol/L (21-32); Chloride 103 mmol/L (98-107); Glucose 90 mg/dL (74-106); Potassium 5.2 mmol/L (3.5-5.1); Sodium 133 mmol/L (136-145)
[2022-09-21 14:31] LABS: Alanine Aminotransferase 17 U/L (13-56); Alkaline Phosphatase 82 U/L (45-117); Aspartate Aminotransferase 36 U/L (15-37); BUN/Creatinine Ratio 30.7; Bilirubin, Total 0.5 mg/dL (0.2-1.0); GFR African American 32 mL/min; GFR Non-African American 27 mL/min; Total Protein 6.6 g/dL (6.4-8.2)
[2022-09-21] MEDS ORDERED: SODIUM ZIRCONIUM CYCL 10 GM PAK PO ONE ×2 (16:30)
[2022-09-21] MEDS ORDERED: SODIUM CHLORIDE 0.9% 1,000 ML IV ONE (16:45)
[2022-09-21] MEDS ORDERED: ACETAMINOPHEN 325 MG TAB PO PRN (19:00)
[2022-09-21] MEDS ORDERED: GABAPENTIN 300 MG CAP PO PRN (20:00)
[2022-09-21] MEDS: cefTRIAXone 1GM/50ML D5W 50 ML IV SCH (21:14)
[2022-09-21] MEDS: traMADol HCL 50 MG TAB PO PRN (21:15)
[2022-09-21] MEDS: AZITHROMYCIN 500MG/ 250ML 250 ML IV SCH (21:48)
[2022-09-21 21:58] LABS: Urine Bacteria FEW /hpf (None Seen); Urine Blood TRACE /uL (Negative); Urine Specific Gravity 1.014 (1.001-1.035); Urine WBC 1 /hpf (0 - 5)
[2022-09-21 22:12] LABS: Amphetamine Screen, Urine NEGATIVE (NEGATIVE); Barbiturate Scree,Urine NEGATIVE (NEGATIVE); Benzodiazephine Screen, Urine NEGATIVE (NEGATIVE); Cannabinoid Screen, Urine NEGATIVE (NEGATIVE); Cocaine Screen, Urine NEGATIVE (NEGATIVE); Opiate Scree,Urine POSITIVE (NEGATIVE); Phencyclidine Screen, Urine NEGATIVE (NEGATIVE)
[2022-09-22] MEDS: SODIUM CHLORIDE 0.9% 1,000 ML IV SCH ×2 (04:12→09:32)
[2022-09-22] MEDS ORDERED: NOREPINEPHRINE 8 MG/250ML KIT 250 ML IV SCH (05:00)
[2022-09-22] MEDS ORDERED: DOPamine 1600MCG/ML D5W 250 ML IV SCH (06:15)
[2022-09-22 06:23] LABS: Basophils # (auto) 0.1 10 ^3/uL (0-0.2); Basophils % (auto) 1.1 % (0.0-2.0); Eosinophils # (auto) 0.2 10 ^3/uL (0-0.8); Hematocrit 29.5 % (36.0-46.0); Hemoglobin 9.9 g/dL (12.2-16.2); Lymphocytes # (auto) 0.4 10 ^3/uL (0.4-5.4); Lymphocytes % (auto) 6.4 % (10.0-50.0); Mean Corpuscular Hemoglobin 32.3 pg (28.0-32.0); Mean Corpuscular Hgb Conc. 33.6 g/dL (32.0-36.0); Mean Corpuscular Volume 96.1 fL (80.0-100.0); Monocytes % (auto) 14.7 % (0.0-12.0); Neutrophils # (auto) 4.9 10 ^3/uL (1.6-8.6); Neutrophils % (auto) 74.8 % (37.0-80.0); Red Blood Cells 3.08 10^6/uL (4.0-5.20); Red Cell Distribution Width 13.7 % (11.8-14.3); White Blood Cell 6.6 10^3/uL (4.4-10.8)
[2022-09-22] MEDS: CILOSTAZOL 100 MG TAB PO SCH ×2 (06:43→11:13)
[2022-09-22 06:55] LABS: Albumin 2.5 g/dL (3.4-5.0); BUN/Creatinine Ratio 36.8; Bilirubin, Total 0.6 mg/dL (0.2-1.0); Calcium 8.9 mg/dL (8.5-10.1); Total Protein 6.8 g/dL (6.4-8.2)
[2022-09-22] MEDS ORDERED: ASPirin-EC 81 mg tab PO SCH (07:00)
[2022-09-22] MEDS: traMADol HCL 50 MG TAB PO PRN (09:24)
[2022-09-22] MEDS: cefTRIAXone 1GM/50ML D5W 50 ML IV SCH (09:24)
[2022-09-22] MEDS ORDERED: CLOPIDOGREL BISULFATE 75 MG TAB PO SCH (10:00)
[2022-09-22] MEDS ORDERED: ENOXAPARIN SOD 30 MG/0.3 ML SYRINGE SC SCH (10:00)
[2022-09-22] MEDS: AZITHROMYCIN 500MG/ 250ML 250 ML IV SCH (10:26)
[2022-09-22] MEDS ORDERED: traMADol HCL 50 MG TAB PO PRN (11:15)
[2022-09-22] MEDS ORDERED: MORPHINE SULFATE INJ 2 MG/ml SYRG IV PRN (11:15)
[2022-09-22 12:45] VITALS: BP 90/31
== END 2022-09-22 14:00 | disposition home or self-care (01) | DRG 640 ==
LOC: EDUNIT# 13:26 → EDBD 13:26 → ER 13:26 → OVERFLOW 19:04 → EAST 20:38 → OVERFLOW 23:25
PROVIDERS: ADMIT Nurse Practitioner Family; ATTEND Internal Medicine Cardiovascular Disease
DX: E86.9 Volume depletion, unspecified (principal); G92.9 Unspecified toxic encephalopathy; E46 Unspecified protein-calorie malnutrition; N17.9 Acute kidney failure, unspecified; Z68.1 Body mass index [BMI] 19.9 or less, adult; R64 Cachexia; D64.9 Anemia, unspecified; E11.69 Type 2 diabetes mellitus with other specified complication; E87.5 Hyperkalemia; I10 Essential (primary) hypertension; I25.10 Atherosclerotic heart disease of native coronary artery without angina pectoris; Z20.822 Contact with and (suspected) exposure to COVID-19; E11.51 Type 2 diabetes mellitus with diabetic peripheral angiopathy without gangrene; J44.9 Chronic obstructive pulmonary disease, unspecified; M85.80 Other specified disorders of bone density and structure, unspecified site; R62.7 Adult failure to thrive; Z51.5 Encounter for palliative care; Z85.038 Personal history of other malignant neoplasm of large intestine; Z85.3 Personal history of malignant neoplasm of breast; Z82.49 Family history of ischemic heart disease and other diseases of the circulatory system; Z82.3 Family history of stroke
CPT/HCPCS: 36415; 36600; 70450; 71045; 73590; 73600; 73630; 80053; 80307; 80320; 81001; 82140; 82805; 83605; 83880; 84484; 85025; 87040; 87086; 87426; 96360; G0378; G0463; J0696